=== PATIENT | female | born 1980 | race Two or more races ===

== ENCOUNTER 2025-01-16 23:38 | Observation (INO) | payer MEDICAID, SELFPAY ==
[2025-01-16 23:44] VITALS: BMI 31.6
[2025-01-16 23:50] VITALS: BP 97/81; PULSE 190; RESP 26; O2SAT 100
[2025-01-16 23:53] VITALS: BP 145/90; PULSE 210
[2025-01-16] MEDS: ADENOSINE INJ 3 MG/ML VIAL 6 MG IVP (23:53)
--- NOTE | 2025-01-16 23:55 | PD.EDCHEST ---
ED Chest Pain RME/HPI General Chief Complaint: Chest Pain Stated Complaint: PALPITATIONS CHEST P AIN Arrival date/time: 01/16/25 23:38 RME / HPI RME / HPI narrative: This section includes all my notes and documentations, including HPI, PE, and ED course. 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 Patient reports feeling similar symptoms about 3 weeks ago. No chest pain. No fever. No syncope or near syncope. No other complaints. ROS: All negative except as documented in HPI. Physical Exam: General: Alert and oriented. Eyes: Conjunctivae and lids clear. ENT: No nasal congestion. Neck: Supple. Heart: Tachycardic (~200 bpm). Lungs: No respiratory distress. Good air movement. No rhonchi, wheezing, rales. Abdomen: Soft and nontender. Skin: Warm and dry. Neuro: Alert and oriented X 3. I reviewed all diagnostic test results: My interpretation of the EKG: SVT (185 bpm). My interpretation of the chest x-ray is NAD, official radiology report is pending. Blood tests and urine tests remarkable for K 3.4, troponin 0.080 and positive UDS for marijuana. Covid/Influenza: Negative. At this point, diagnoses include: SVT and elevated troponin. Treatment here included: Adenocard, Aspirin, Potassium Chloride, IV fluid, Lopressor. Significant improvement noted. I discussed the case with our hospitalist. About the presentation and exam and diagnostics and treatments here. And need of further care in the hospital. Will accept the patient. Mark Anthony Whitney MD Related Data Home Medications ?Medication ?Instructions ?Recorded ?Confirmed No Known Home Medications 07/09/23 07/09/23 Allergies Allergy/AdvReac Type Severity Reaction Status Date / Time No Known Allergies Allergy Verified 01/16/25 23:43 Review of Systems Review of Systems Systems Reviewed: All systems reviewed, normal except as documented Past Medical History Past Medical History NEUROLOGIC: Positive Neurological Disorders and Migraine CARDIAC: Positive Cardiac Disorders (CHEST PAIN SEVERAL MONTHS AGO. PALPITATIONS AT TIMES) GASTROINTESTINAL: Positive Gastrointestinal Disorders (CONSTIPATION) and Hemorrhoids REPRODUCTIVE: Positive Previous Pregnancies (X6) MUSCULOSKELETAL: Positive Musculoskeletal Disorders (HIP PAIN AT TIMES) PSYCHO/SOCIAL: Positive Anxiety (NO MEDS) Social History SMOKING STATUS: Current some day smoker SUBSTANCE USE: marijuana ALCOHOL: Current ED Exam Narrative Physical exam: Refer to HPI Course Course Course Narrative: CXR is ordered for determining the etiology of shortness of breath. Quality Measures none Orders Category Date Time Status Patient Condition Routine Admission 01/17/25 01:[address] in Observation Status Routine Admission 01/17/25 01:35 Active Bedside COVID-19 Antigen Test NOW Care 01/16/25 23:56 Active Bedside Influenza A&B Antigen Test NOW Care 01/16/25 23:56 Completed COVID-19 Screening Questionnaire NOW Care 01/17/25 01:49 Active Continuous Pulse Oximetry NOW Care 01/17/25 01:35 Active Decision to Admit X1 Care 01/17/25 01:49 Active EKG (ED ONLY) *Do not use* NOW Care 01/16/25 23:58 Completed Flu & Pneumonia Vaccine Screen ONCE Care 01/17/25 01:35 Active Notify provider NEEDED Care 01/17/25 01:35 Active Saline [Insert IV] NOW Care 01/16/25 23:56 Active Straight [In and Out Catheter] X1 Care 01/16/25 23:56 Active Consult to Cardiology Stat Cons 01/17/25 01:39 Ordered Diet Cardiac Diet 01/17/25 Breakfast Active CA echo doppler complete Stat Exams 01/17/25 01:35 Ordered EKG (ED Only) Stat Exams 01/16/25 23:58 Ordered XR chest 1V portable Stat Exams 01/16/25 23:58 Taken Alcohol, Blood Medical Stat Lab 01/16/25 23:58 Completed BNP [B-Type Natriuretic Peptide] Stat Lab 01/16/25 23:58 Completed Bilirubin,Direct Stat Lab 01/16/25 23:58 Completed CBC AM DRAW Lab 01/17/25 05:00 Ordered CBC AM DRAW Lab 01/18/25 05:00 Ordered CBC AM DRAW Lab 01/19/25 05:00 Ordered CBC Stat Lab 01/16/25 23:59 Completed CMP [Comprehensive Metabolic Panel] Stat Lab 01/16/25 23:58 Completed Comprehensive Metabolic Panel AM DRAW Lab 01/17/25 05:00 Ordered Comprehensive Metabolic Panel AM DRAW Lab 01/18/25 05:00 Ordered Comprehensive Metabolic Panel AM DRAW Lab 01/19/25 05:00 Ordered D-Dimer Stat Lab 01/16/25 23:59 Completed Drug Screen,Urine Stat Lab 01/17/25 00:23 Completed Free T4 (Free Thyroxine) Stat Lab 01/16/25 23:58 Completed HCG,Qualitative Serum Stat Lab 01/17/25 00:14 Completed Magnesium AM DRAW Lab 01/17/25 05:00 Ordered Magnesium AM DRAW Lab 01/18/25 05:00 Ordered Magnesium AM DRAW Lab 01/19/25 05:00 Ordered Magnesium Stat Lab 01/16/25 23:58 Completed PT [Prothrombin Time with INR] Stat Lab 01/16/25 23:59 Completed PTT [Partial Thromboplastin Time] Stat Lab 01/16/25 23:59 Completed Phosphorous AM DRAW Lab 01/18/25 05:00 Ordered Phosphorous AM DRAW Lab 01/19/25 05:00 Ordered Phosphorous AM DRAW Lab 01/20/25 05:00 Ordered TSH [Thyroid Stimulating Hormone] Stat Lab 01/17/25 00:14 Completed Thyroid Stimulating Hormone AM DRAW Lab 01/17/25 05:00 Ordered Troponin I Stat Lab 01/17/25 00:14 Completed Troponin I Stat Lab 01/17/25 06:00 Ordered UA, C/S IF [Urinalysis, C/S if Indicated] Stat Lab 01/17/25 00:23 Completed Acetaminophen Tab [Tylenol Tab] Med 01/17/25 01:35 Active 1,000 mg PO Q6H PRN Acetaminophen Tab [Tylenol Tab] Med 01/17/25 01:35 Active 650 mg PO Q6H PRN Adenosine 6mg Inj [Adenocard Inj] Med 01/16/25 23:57 Discontinued 12 mg IVP X1 ONE Adenosine 6mg Inj [Adenocard Inj] Med 01/16/25 23:41 Discontinued 18 mg .ROUTE .STK-MED ONE Adenosine 6mg Inj [Adenocard Inj] Med 01/16/25 23:57 Discontinued 6 mg IVP X1 ONE Aspirin Chew Med 01/17/25 00:56 Discontinued 324 mg PO X1 ONE Bismuth Subsalicyl [Pepto-Bismol] Med 01/17/25 09:00 Ordered 2 tab PO BID Enoxaparin [Lovenox] Med 01/17/25 09:00 Active 40 mg SC QDAY KCL 10% Liq UDC 15 ML Med 01/17/25 00:55 Discontinued 40 meq PO X1 ONE Magnesium Sulfate 4 GM Ivpb [Magnesium Sulfate Ivpb] Med 01/17/25 01:49 Active 4 gm in 50 ml IV X1 Metoprolol Tartrate [Lopressor] Med 01/16/25 23:57 Discontinued 25 mg PO X1 ONE Ondansetron Inj [Zofran Inj] Med 01/17/25 01:35 Ordered 4 mg IVP Q6H PRN Pantoprazole [Protonix] Med 01/17/25 09:00 Active 40 mg PO BID Potassium Chloride [K-Dur] Med 01/17/25 01:49 Once 40 meq PO X1 ONE Sodium Chloride 0.9% 1000 ml [Ns] 1,000 ml Med 01/17/25 00:03 Discontinued IV 999 mls/hr Tetracycline Med 01/17/25 06:00 Ordered 500 mg PO QID metroNIDAZOLE [Flagyl] Med 01/17/25 06:00 Active 500 mg PO QID Code Status Routine Oth 01/17/25 01:35 Ordered Oxygen Delivery DAILY RT 01/17/25 01:36 Active Vital Signs Vital signs: Vital Signs Pulse Rate 190 H 01/16/25 23:50 Respiratory Rate 26 H 01/16/25 23:50 Blood Pressure 97/81 01/16/25 23:50 Pulse Oximetry (%) 100 01/16/25 23:50 Oxygen Delivery Method Room Air 01/16/25 23:50 Chest Pain MDM Narrative MDM Narrative:: Scribe Attestation: Leda Moore am scribing for and in the presence of Dr. Whitney. Provider Notation: Although this document has been carefully reviewed, there may still be some phonetic and other typographical errors.? These errors are purely grammatical due to imperfections in the software program and should not be construed in any way to? compromise the substance of the patient's medical care during this visit. 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 Patient reports feeling similar symptoms about 3 weeks ago. No other complaints. Patient data External records reviewed:: [facility] previous records (Reviewed [facility] ED records from 06/13/22. Patient was seen for Back pain.) Clinical information provided by:: patient Social determinants that could affect healthcare access:: none Patient has the following chronic illnesses:: Migraine, Palpitations, Constipation, Hemorrhoids How is presenting disease/condition affected by chronic disease/condition?: exacerbated by Evaluation data The following diagnostics were reviewed and interpreted by me:: radiology exam(s) and EKG tracing(s) (My interpretation of the EKG: SVT (185 bpm). Mark Anthony Whitney MD) Lab and/or radiology exams considered but not ordered:: None Interpretation Summary: I reviewed all diagnostic test results: My interpretation of the EKG: SVT (185 bpm). My interpretation of the chest x-ray is NAD, official radiology report is pending. Blood tests and urine tests remarkable for K 3.4, troponin 0.080 and positive UDS for marijuana. Covid/Influenza: Negative. Medications / Prescriptions Medications or Prescriptions considered but not ordered:: None Medication administrations:: Medication Administration History Acetaminophen (Acetaminophen 325 Mg Tablet) 650 mg PO Q6H PRN PRN Reason: Fever >99.5 Stop: 02/16/25 01:34 Acetaminophen (Acetaminophen 325 Mg Tablet) 1,000 mg PO Q6H PRN PRN Reason: PAIN SCALE 1-3 (mild Stop: 02/16/25 01:34 Bismuth Subsalicylate (Bismuth Subsalicyl 1 Tablet (Pepto-Bismol)) 2 tab PO BID [facility] Stop: 02/16/25 08:59 Enoxaparin Sodium (Enoxaparin Sod Inj 40 Mg/0.4 Ml Syringe) 40 mg SC QDAY [facility] Stop: 01/31/25 08:59 Magnesium Sulfate (Magnesium Sulfate Ivpb) 4 gm in 50 mls @ 12.5 mls/hr IV X1 ONE Stop: 01/17/25 05:48 Metronidazole (Metronidazole 250 Mg Tablet) 500 mg PO QID [facility] Stop: 01/24/25 05:59 Ondansetron HCl (Ondansetron Inj 2 Mg/Ml Inj 2 Ml) 4 mg IVP Q6H PRN; Protocol PRN Reason: NAUSEA OR VOMITING Stop: 02/16/25 01:34 Pantoprazole Sodium (Pantoprazole 40 Mg Tablet) 40 mg PO BID [facility] Stop: 02/16/25 08:59 Potassium Chloride (Potassium Chloride 20 Meq Tabcr) 40 meq PO X1 ONE Stop: 01/17/25 01:50 Tetracycline HCl (Tetracycline 250 Mg Capsule) 500 mg PO QID [facility] Stop: 01/24/25 05:59 Discontinued Medications Adenosine (Adenosine Inj 3 Mg/Ml Vial) Confirm Administered Dose 18 mg .ROUTE .STK-MED ONE Stop: 01/16/25 23:42 Last Admin: 01/16/25 23:56 Dose: Not Given Documented By: DT Non-Admin Reason: Duplicate Medication on eMAR Adenosine (Adenosine Inj 3 Mg/Ml Vial) 6 mg IVP X1 ONE Stop: 01/16/25 23:58 Last Admin: 01/16/25 23:53 Dose: 6 mg Documented By: DT Adenosine (Adenosine Inj 3 Mg/Ml Vial) 12 mg IVP X1 ONE Stop: 01/16/25 23:58 Last Admin: 01/17/25 00:01 Dose: 12 mg Documented By: DT Aspirin (Aspirin 81 Mg Chew) 324 mg PO X1 ONE Stop: 01/17/25 00:57 Last Admin: 01/17/25 01:08 Dose: 324 mg Documented By: DT Sodium Chloride (Ns) 1,000 mls @ 999 mls/hr IV .Q1H1M ONE Stop: 01/17/25 01:03 Last Infusion: 01/17/25 01:10 Dose: Infused Documented By: Admin: 01/17/25 00:07 Dose: 999 mls/hr Documented By: DT Metoprolol Tartrate (Metoprolol Tartrate 25 Mg Tablet) 25 mg PO X1 ONE Stop: 01/16/25 23:58 Last Admin: 01/17/25 00:09 Dose: 25 mg Documented By: DT Potassium Chloride (Potassium Chloride 10% 20 Meq/15 Ml Udc) 40 meq PO X1 ONE Stop: 01/17/25 00:56 Last Admin: 01/17/25 01:08 Dose: 40 meq Documented By: DT Treatment from ca here included Adenocard, Aspirin, Potassium Chloride, IV fluid, Lopressor. Consultations Consultation(s) initiated? (list below): No Diagnosis Chest Pain Differential Diagnosis: stable angina, unstable angina pectoris, atypical chest pain, st elevation myocardial infarction, costochondritis, chest pain and other (SVT) Most likely diagnosis given after review of the tests above:: SVT and elevated troponin Admission Indicated Admission indicated?: indicated Explain why admission is indicated or not indicated:: SVT and elevated troponin Admission Request Was there a request for admission?: Yes Admission Attestation Admission request attestation: Discussed case with Hospitalist service regarding admission. Discussed patients ED course, exam findings, labs, and radiology results. The Hospitalist [agrees] to accept the patient for admission. Disposition Plan Disposition Plan: Admit Critical Care Time Critical Care Time Critical Care Time: Yes Total Critical Care Time (min.): 42 Attestation: Due to a high probability of clinically significant, life threatening deterioration, the patient required my highest level of preparedness to intervene emergently and I personally spent this critical care time directly and personally managing the patient. This critical care time included obtaining a history; examining the patient; ordering and review of studies; arranging urgent treatment with development of a management plan; evaluation of patient's response to treatment; frequent reassessment; and discussions with family and other providers. It was exclusive of separately billable procedures and treating other patients and teaching time. Mark Anthony Whitney MD Discharge Plan Plan Patient Disposition: Admit Acute Care w/in Hospital Prescriptions/Referrals Prescriptions/Med Rec: No Action No Known Home Medications Referrals: John De León MD [Primary Care Provider] - In 1 week Problem List Clinical Impression: SVT (supraventricular tachycardia), Elevated troponin Patient/Caregiver Discharge Instructions Print Language: Chadian
--- NOTE | 2025-01-16 23:58 | XR_ITS ---
Examination: AP chest single view Technique one AP portable upright chest single view Date and time: January 17, 2025 0021 hours Comparison June 13, 2022 INDICATIONS: Shortness of breath today. FINDINGS: Normal heart size Lungs are clear. The osseous structures are intact IMPRESSION: No active disease
[2025-01-17] VITALS (14 sets, daily range): BP systolic 116–157; BP diastolic 75–101; PULSE 58–210; RESP 13–100; TEMP 36.1–37; O2SAT 97–100
[2025-01-17] MEDS: ADENOSINE INJ 3 MG/ML VIAL 12 MG IVP (00:01)
[2025-01-17] MEDS: SODIUM CHLORIDE 0.9% 1000 ML 1,000 ML 999 ML IV (00:07)
[2025-01-17] MEDS: METOPROLOL TARTRATE 25 MG TABLET PO (00:09)
[2025-01-17 00:31] LABS: Basophils % (Auto) 0 % (0-2.5); Eosinophils # (Auto) 0.1 Thou/mm3 (0.0-0.5); Eosinophils % (Auto) 1 % (0-10); Hematocrit 31.1 % (36.0-46.0); Hemoglobin 10.1 g/dL (12.0-16.0); Immature Granulocytes % (Auto) 0 % (0-0); Immature Granulocytes Auto 0.02 Thou/mm3 (0.00-0.00); Lymphocytes # (Auto) 3.3 Thou/mm3 (1.0-4.8); Lymphocytes % (Auto) 49 % (10-50); Mean Corpuscular HGB Conc 32.5 g/dl (31.0-37.0); Mean Corpuscular Volume 74 fL (80-100); Monocytes # (Auto) 0.7 Thou/mm3 (0.0-0.8); Monocytes % (Auto) 10 % (0-12); Neutrophils # (Auto) 2.6 Thou/mm3 (1.8-7.7); Neutrophils % (Auto) 39 % (37-80); Nucleated Red Blood Cell % 0 /100 WBC (0); Platelet Count 445 Thou/mm3 (140-440); RDW Standard Deviation 57.4 fL (36.4-46.3); Red Blood Count 4.21 Miln/mm3 (4.00-5.20); White Blood Count 6.7 Thou/mm3 (3.6-11.0)
[2025-01-17 00:32] LABS: Collection Type, Urine Clean Catch
[2025-01-17 00:42] LABS: HCG,Qualitative Serum Negative
[2025-01-17 00:45] LABS: Bacteria,Urine Rare; Bilirubin,Urine Negative (Negative); Blood,Urine Negative (Negative); Clarity,Urine Clear (Clear/Hazy); Color,Urine Colorless (Lt Yel-Yel); Culture Indicated,Urine Not Indicated; Glucose, Urine Negative (Negative); Ketones,Urine Negative (Negative); Leukocyte Esterase,Urine Negative (Negative); Nitrite,Urine Negative (Negative); PH,Urine 6.5 (5.0-7.0); Protein,Urine Negative (Neg - Trace); RBC,Urine 3 /hpf (0-3); Specific Gravity,Urine 1.005 (1.001-1.035); Squamous Epithelial Cell,Urine 3 /hpf (0-5); Urobilinogen,Urine Negative mg/dL (0.0-1.0); WBC,Urine < 1 /hpf (0-5)
[2025-01-17 00:46] LABS: INR 0.9 (0.9-1.3); Partial Thromboplastin Time 24.2 Seconds (22.0-36.0); Prothrombin Time 10.1 Seconds (9.0-12.2)
[2025-01-17 00:50] LABS: Amphetamine/Methamp Scrn,U Negative (Negative); Barbiturate Screen,Urine Negative (Negative); Benzodiazepines Screen,Urine Negative (Negative); Benzoylecgonine Screen, Ur Negative (Negative); Fentanyl Screen,Urine Negative (Negative); Opiate Screen,Urine Negative (Negative); THC Screen,Urine Positive (Negative)
[2025-01-17 00:50] LABS: Alanine Aminotransferase 44 U/L (10-49); Albumin, Serum 4.3 gm/dL (3.5-5.0); Albumin/Globulin Ratio 1.4 (1.2-2.2); Alcohol, Blood Medical < 3.0 mg/dL (0-10.0); Alkaline Phosphatase 97 U/L (46-116); Anion Gap 10 (7-16); BUN/Creatinine Ratio 12 Ratio (12-20); Bilirubin,Direct < 0.1 mg/dL (0.0-0.3); Bilirubin,Total 0.2 mg/dL (0.3-1.2); Blood Urea Nitrogen 11 mg/dL (9-23); Calcium 8.5 mg/dL (8.3-10.6); Calcium (Corrected) 8.5 mg/dL (8.5-10.1); Carbon Dioxide 21.2 mMol/L (20.0-31.0); Chloride 109 mMol/L (98-107); Creatinine (Component) 0.9 mg/dL (0.6-1.3); D-Dimer < 250 ng/mL (<600); Estimated Creatinine Clearance 88.3 mL/min (>60); Glucose 154 mg/dL (74-106); Magnesium 1.8 mg/dL (1.6-2.6); Osmolality,Calculated 281 (275-295); Potassium 3.4 mMol/L (3.4-5.1); Sodium 140 mMol/L (136-145); Thyroid Stimulating Hormone 2.48 uIU/mL (0.55-4.78); Total Protein 7.3 gm/dL (5.7-8.2); eGFR > 60 See Note
[2025-01-17 00:55] LABS: B-Type Natriuretic Peptide 32 pg/mL (0-100)
[2025-01-17] MEDS: ASPIRIN 81 MG CHEW 324 MG PO (01:08)
[2025-01-17] MEDS: POTASSIUM CHLORIDE 10% 20 MEQ/15 ML UDC 40 MEQ PO (01:08)
--- NOTE | 2025-01-17 01:35 | ECHO_ITS ---
Transthoracic Echo Report Ht (in): 65 Wt (lb): 190 Exam Location: Echo Lab Status: Emergency Scada Technician: Mayelin Wright Indications: Procedure Performed: BP: 154 / 98 HR: 65 Technical Quality: Adequate MEASUREMENTS (Male / Female) Normal Values 2D ECHO LV Diastolic Diameter PLAX 4.7 cm 4.2 - 5.9 / 3.9 - 5.3 cm LV Systolic Diameter PLAX 3.0 cm IVS Diastolic Thickness 0.8 cm 0.6 - 1.0 / 0.6 - 0.9 cm LVPW Diastolic Thickness 0.9 cm 0.6 - 1.0 / 0.6 - 0.9 cm LV Relative Wall Thickness 0.4 LVOT Diameter 1.8 cm LA Volume Index 28.6 cm?/m? 16 - 28 cm?/m? DOPPLER AV Peak Velocity 110.0 cm/s AV Peak Gradient 4.8 mmHg LVOT Peak Velocity 80.5 cm/s LVOT Peak Gradient 2.6 mmHg AV Area Cont Eq pk 1.9 cm? MV Area PHT 3.7 cm? Mitral E Point Velocity 86.8 cm/s Mitral A Point Velocity 58.7 cm/s Mitral E to A Ratio 1.5 LV E' Lateral Velocity 10.8 cm/s Mitral E to LV E' Lateral Ratio 8.0 LV E' Septal Velocity 8.9 cm/s Mitral E to LV E' Septal Ratio 9.7 TR Peak Velocity 220.0 cm/s TR Peak Gradient 19.4 mmHg PV Peak Velocity 78.7 cm/s PV Peak Gradient 2.5 mmHg FINDINGS Left Ventricle Normal left ventricular size, wall thickness, systolic function with no obvious regional wall motion abnormalities. Normal left ventricular diastolic filling pattern for age. The ejection fraction is visually estimated at 60%. Right Ventricle The right ventricle is normal in size and systolic function. The estimated right ventricular systolic pressure, 19 mmHg. RAP 5mmHg. Left Atrium The left atrium is normal by two-dimensional, color flow and Doppler imaging with no structural abnormalities, no thrombus formation present. Right Atrium The right atrium is normal by two-dimensional imaging, color flow and Doppler imaging with no structural abnormalities, no thrombus formation present. Atrial Septum The interatrial septum appears normal with no evidence of a shunt. Aorta The aorta is normal by two-dimensional, color flow and Doppler interrogation. Mitral Valve The mitral valve is normal by two-dimensional, color flow and Doppler interrogation. There is mild mitral regurgitation. Aortic Valve The aortic valve is trileaflet and normal by two-dimensional, color flow and Doppler interrogation. There is no significant aortic valve regurgitation. Tricuspid Valve The tricuspid valve is normal by two-dimensional, color flow and Doppler interrogation. There is trace tricuspid regurgitation. Pulmonic Valve The pulmonic valve is not well visualized. There is no significant pulmonic valve regurgitation. Vessels The pulmonary artery appears normal. The inferior vena cava pulmonary and hepatic veins appear normal. Pericardium The pericardium is normal by two-dimensional imaging. There is no significant pericardial effusion. CONCLUSIONS Indications: SVT The transthoracic study is normal by two-dimensional, color flow imaging and Doppler interrogation. Normal-sized cardiac chambers. Normal size left ventricle excellent LV systolic function ejection fraction of 60 to 65%. Mitral valve thickening trivial mitral regurgitation. Trivial tricuspid regurgitation. Elaine Cortes (Electronically Signed) Final Date: 17 January 2025 17:20
--- NOTE | 2025-01-17 01:50 | PD.RESHP ---
Documentation for date of: 01/17/25 HPI History of Present Illness Chief complaint: Palpitations History of present illness: 44-year-old female active smoker with past medical history of iron deficiency anemia on iron supplementation who presented to the ED after feeling her heart racing. Patient was getting ready to go to bed when she suddenly felt like her heart was racing endorsing palpitations associated with shortness of breath. She states that this episode was different as her symptoms did not improve with rest and felt like her heart continue to be excessively fast. Patient has had similar episode around 3 weeks ago spoke to her PCP and was waiting for referral to outpatient cardiology for formal evaluation of palpitations. Patient denies excessive caffeine use however does endorse daily active smoking about half a pack a day as well as THC use. Patient also endorses lots of recent stressors in the past 6 months including the of a family member and taking care of other loved ones in her home. In the ED patient arrived with heart rate in the 180s with SVTs was given adenosine and patient converted to normal sinus rhythm. Patient also endorses that she is currently on treatment started on January 12, 2025 for H. pylori infection. At this time patient denies fever, chills, shortness of breath, chest pain, headache, loss of consciousness, nausea, vomiting, orthopnea, PND. ED course: ED vitals: BP 97/81, HR 190, RR 26, saturating 100% on room air ED labs: Microcytic anemia, glucose 154, T. bili 0.2, troponin 0.08, BNP 32, TSH 2.48, free T41.10, UA negative, U tox positive for THC In the ED patient received loading dose of aspirin, adenosine 6 mg, 12 mg PMHx: As above SX Hx: None Social Hx: Half a pack of cigarettes a day, drinks socially, denies illicit substances however does endorse THC use FH X: Unknown Review of Systems Review of Systems Systems Reviewed: All systems reviewed, normal except as documented Narrative Review of Systems: All 12 systems reviewed and found negative unless otherwise stated in the HPI. Exam Vital Signs Pulse Resp BP Pulse Ox O2 Del Method 89 14 154/98 H 99 Room Air 01/17/25 01:11 01/17/25 01:11 01/17/25 01:11 01/17/25 01:11 01/17/25 01:11 Narrative Exam Physical Exam GENERAL: NAD, AAOx3 HEENT: Moist mucosa. Eyes open, symmetrical, & clear CARDIO: Heart RRR, no obvious murmurs PULM: No noted coughing/dyspnea CTA B/L, no R/W/R GI: Abdomen soft, nondistended, no pain on palpation. BSx4 SKIN/MSK/EXT: No wounds/rashes/edema/amputations, no pain on palpation. Pedal pulses present B/L NEURO: AAOx3, no focal neuro deficits, able to move all 4 extremities Results: Labs 01/17/25 00:14 01/17/25 00:14 Labs: Short CBC 01/17/25 Range/Units 00:14 WBC 6.7 (3.6-11.0) Thou/mm3 Hgb 10.1 L (12.0-16.0) g/dL Hct 31.1 L (36.0-46.0) % Plt Count 445 H (140-440) Thou/mm3 BMP 01/17/25 00:14 Sodium 140 Potassium 3.4 Chloride 109 H Carbon Dioxide 21.2 BUN 11 Creatinine 0.9 Glucose 154 H Calcium 8.5 Cardiac Enzymes 01/17/25 Range/Units 00:14 Troponin I 0.080 H* (0.0-0.045) ng/mL Liver Function 01/17/25 Range/Units 00:14 Total Bilirubin 0.2 L (0.3-1.2) mg/dL Direct Bilirubin < 0.1 (0.0-0.3) mg/dL ALT 44 (10-49) U/L Alkaline Phosphatase 97 (46-116) U/L Albumin 4.3 (3.5-5.0) gm/dL Urine 01/17/25 Range/Units 00:23 Urine Color Colorless A (Lt Yel-Yel) Urine Clarity Clear (Clear/Hazy) Urine pH 6.5 (5.0-7.0) Ur Specific [place] 1.005 (1.001-1.035) Urine Protein Negative (Neg - Trace) Urine Glucose (UA) Negative (Negative) Quality Measures Quality Measures none Medications Home Medications and Allergies Home Medications ?Medication ?Instructions ?Recorded ?Confirmed ?Type amoxicillin 500 mg capsule 1,000 mg PO BID 01/17/25 01/17/25 History clarithromycin 500 mg tablet 500 mg PO BID 01/17/25 01/17/25 History ferrous sulfate 325 mg (65 mg 325 mg PO .3 TIMES A WEEK 01/17/25 01/17/25 History iron) tablet (John-Time) omeprazole 20 mg capsule,delayed 20 mg PO BID 01/17/25 01/17/25 History release vit D3-folic acid-vit B2-B6-B12 1 tab PO .QD 01/17/25 01/17/25 History 2,000 unit-800 mcg-0.32 mg tablet Allergies Allergy/AdvReac Type Severity Reaction Status Date / Time No Known Allergies Allergy Verified 01/16/25 23:43 Visit Medications Acetaminophen (Acetaminophen 325 Mg Tablet) 650 mg PO Q6H PRN PRN Reason: Fever >99.5 Stop: 02/16/25 01:34 Acetaminophen (Acetaminophen 325 Mg Tablet) 1,000 mg PO Q6H PRN PRN Reason: PAIN SCALE 1-3 (mild Stop: 02/16/25 01:34 Bismuth Subsalicylate (Bismuth Subsalicyl 1 Tablet (Pepto-Bismol)) 2 tab PO BID [facility] Stop: 02/16/25 08:59 Enoxaparin Sodium (Enoxaparin Sod Inj 40 Mg/0.4 Ml Syringe) 40 mg SC QDAY [facility] Stop: 01/31/25 08:59 Magnesium Sulfate (Magnesium Sulfate Ivpb) 4 gm in 50 mls @ 12.5 mls/hr IV X1 ONE Stop: 01/17/25 05:48 Metronidazole (Metronidazole 250 Mg Tablet) 500 mg PO QID [facility] Stop: 01/24/25 05:59 Ondansetron HCl (Ondansetron Inj 2 Mg/Ml Inj 2 Ml) 4 mg IVP Q6H PRN; Protocol PRN Reason: NAUSEA OR VOMITING Stop: 02/16/25 01:34 Pantoprazole Sodium (Pantoprazole 40 Mg Tablet) 40 mg PO BID [facility] Stop: 02/16/25 08:59 Potassium Chloride (Potassium Chloride 20 Meq Tabcr) 40 meq PO X1 ONE Stop: 01/17/25 01:50 Tetracycline HCl (Tetracycline 250 Mg Capsule) 500 mg PO QID [facility] Stop: 01/24/25 05:59 Discontinued Medications Adenosine (Adenosine Inj 3 Mg/Ml Vial) 6 mg IVP X1 ONE Stop: 01/16/25 23:58 Last Admin: 01/16/25 23:53 Dose: 6 mg Adenosine (Adenosine Inj 3 Mg/Ml Vial) 12 mg IVP X1 ONE Stop: 01/16/25 23:58 Last Admin: 01/17/25 00:01 Dose: 12 mg Aspirin (Aspirin 81 Mg Chew) 324 mg PO X1 ONE Stop: 01/17/25 00:57 Last Admin: 01/17/25 01:08 Dose: 324 mg Sodium Chloride (Ns) 1,000 mls @ 999 mls/hr IV .Q1H1M ONE Stop: 01/17/25 01:03 Last Infusion: 01/17/25 01:10 Dose: Infused Metoprolol Tartrate (Metoprolol Tartrate 25 Mg Tablet) 25 mg PO X1 ONE Stop: 01/16/25 23:58 Last Admin: 01/17/25 00:09 Dose: 25 mg Potassium Chloride (Potassium Chloride 10% 20 Meq/15 Ml Udc) 40 meq PO X1 ONE Stop: 01/17/25 00:56 Last Admin: 01/17/25 01:08 Dose: 40 meq Assessment & Plan Plan 44-year-old female active smoker with past medical history of iron deficiency anemia on iron supplementation who presented to the ED after feeling her heart racing. Patient will be admitted as an observation for telemetry monitoring and cardiology evaluation. #Palpitations #SVT #Elevated troponins Patient was getting ready to go to bed when she suddenly felt palpitations associated with shortness of breath. 3 weeks ago patient had similar presentation however resolved on its own patient went to her PCP to pursue formal cardiology evaluation however was pending referral Patient also having increased stressors in stuart past 6months including the of a loved one and taking care of family member in her home. On arrival to the ED patient's heart rate was in the 190s EKG showed SVT and was given adenosine 6 mg and adenosine 12 mg with conversion to sinus rhythm. Troponins 0.080 ? Follow-up EKG, monitor QTc ? Trend troponins ? Monitor telemetry ? Echo ordered ? Keep K>4, Mg>2 ? Cardiology consulted, appreciate recs #H. pylori infection ? Tetracycline 500 mg 4 times daily ? Metronidazole 500 mg 4 times daily ? PPI twice daily ? Bismuth #Microcytic anemia Hemoglobin of 10, MCV of 71 ? Follow-up as outpatient Health Maintenance: Disposition: Telemetry, observation for telemetry monitoring Fluids: None Feeding: Cardiac Thrombo prophylaxis: SCDs Gastric Ulcer prophylaxis: Pantoprazole CODE STATUS: Full code Case discussed with my attending Dr. Kaitlin De León MD PGY-1 Attending Provider Attestation/Addendum I have examined the patient, reviewed labs and imaging findings, discussed the case with the resident(s), and reviewed entered orders. I agree with the plan of care as outlined in this note, with these additional summaries/recommendations: After examination of the patient and review of the clinical data, I feel that this patient needs admission to the hospital for further treatment and evaluation. Patient is a 44-year-old female with a medical history of vitamin D deficiency, iron deficiency anemia, and recent diagnosis of H. pylori presents to [facility] emergency department on 01/16/2025 with chief complaints of chest pain, palpitations, and dizziness. Patient seen at bedside. Patient reports she has had on and off again palpitations for the last 3 weeks. Today patient had significant palpitations, chest pain, and dizziness prompting her to come to the ED. In the emergency room patient was found to be in supraventricular tachycardia with heart rate into the 210s. Patient received adenosine 6 mg IV x 1 and then adenosine 12 mg IV x 1 with termination of SVT and conversion to sinus rhythm. Patient does endorse significant stress related to family over the last 6 months. She denies excessive caffeine, coffee or energy drinks. She does endorse occasional THC usage and chronic tobacco use. She denies ever being diagnosed with an arrhythmia in the past but is currently pending outpatient cardiology evaluation. She was recently started on treatment for H. pylori. Patient will be admitted to telemetry for supraventricular tachycardia and we will continue to monitor. Cardiology consulted, recommendations appreciated. Order echocardiogram. Patient also noted to have elevated troponins most likely secondary to demand ischemia in the setting of SVT. Trend troponins every 6 hours or until downtrend. Repeat EKG in AM. Resume home H. pylori treatment. Resume home ferrous sulfate iron deficiency anemia. Patient updated on the plan and in agreement. All questions answered to satisfaction. Please see residents note for additional details and management. Dr. Kaitlin MD
--- NOTE | 2025-01-17 01:55 | EKG_ITS ---
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
[2025-01-17] MEDS: Magnesium Sulfate 4 GM Ivpb 4 GM/50 ML BAG IV (02:15)
[2025-01-17 05:54] LABS: Basophils % (Auto) 0 % (0-2.5); Eosinophils % (Auto) 1 % (0-10); Hematocrit 28.8 % (36.0-46.0); Immature Granulocytes % (Auto) 0 % (0-0); Immature Granulocytes Auto 0.01 Thou/mm3 (0.00-0.00); Lymphocytes # (Auto) 2.1 Thou/mm3 (1.0-4.8); Lymphocytes % (Auto) 34 % (10-50); Mean Corpuscular HGB Conc 30.6 g/dl (31.0-37.0); Mean Corpuscular Hemoglobin 23.7 pg (25.0-35.0); Mean Corpuscular Volume 77 fL (80-100); Monocytes # (Auto) 0.6 Thou/mm3 (0.0-0.8); Monocytes % (Auto) 9 % (0-12); Neutrophils # (Auto) 3.6 Thou/mm3 (1.8-7.7); Neutrophils % (Auto) 56 % (37-80); Nucleated Red Blood Cell % 0 /100 WBC (0); Platelet Count 361 Thou/mm3 (140-440); RDW Standard Deviation 61.3 fL (36.4-46.3); Red Blood Count 3.72 Miln/mm3 (4.00-5.20); White Blood Count 6.3 Thou/mm3 (3.6-11.0)
[2025-01-17 06:04] LABS: Hemoglobin 8.8 g/dL (12.0-16.0)
[2025-01-17] MEDS: TETRACYCLINE 250 MG CAPSULE 500 MG PO ×3 (06:11→17:27)
[2025-01-17] MEDS: metroNIDAZOLE 250 MG TABLET 500 MG PO ×3 (06:12→17:28)
[2025-01-17 06:49] LABS: Alanine Aminotransferase 59 U/L (10-49); Albumin, Serum 3.6 gm/dL (3.5-5.0); Albumin/Globulin Ratio 1.3 (1.2-2.2); Alkaline Phosphatase 83 U/L (46-116); Anion Gap 8 (7-16); BUN/Creatinine Ratio 13 Ratio (12-20); Bilirubin,Total 0.2 mg/dL (0.3-1.2); Blood Urea Nitrogen 9 mg/dL (9-23); Calcium 8.1 mg/dL (8.3-10.6); Calcium (Corrected) 8.4 mg/dL (8.5-10.1); Carbon Dioxide 23.1 mMol/L (20.0-31.0); Chloride 113 mMol/L (98-107); Creatinine (Component) 0.7 mg/dL (0.6-1.3); Estimated Creatinine Clearance 113.5 mL/min (>60); Globulin 2.7 gm/dL (2.3-3.5); Glucose 108 mg/dL (74-106); Magnesium 2.8 mg/dL (1.6-2.6); Osmolality,Calculated 286 (275-295); Sodium 144 mMol/L (136-145); Total Protein 6.3 gm/dL (5.7-8.2); eGFR > 60 See Note
[2025-01-17 06:53] LABS: Troponin I 0.084 ng/mL (0.0-0.045)
[2025-01-17] MEDS: PANTOPRAZOLE 40 MG TABLET PO (08:36)
[2025-01-17] MEDS: CALCIUM CARBONATE 600 MG TABLET PO (08:36)
--- NOTE | 2025-01-17 09:43 | PD.RESPRO ---
Documentation for date of: 01/17/25 Subjective Subjective Interval history: Pt is an overnight admit. Pt is seen and examined at bedside this morning. Pt states she has been having increased anxiety, palpitations and shortness of breath since the passing of her mother in law 6 months ago. Pt has never dad these symptoms prior to that. Pt denies any known cardiac history. Pt was referred to a light equipment operator by primary care however the referral is still pending. Pt denies any chest pains or syncopal episodes. Pt does smoke half pack of cigs daily. Troponins are trending currently troponins 0.078 -> 0.096. cardio recs and echo pending. vitals are stable, Labs are significant for hemoglobin 8.8, hematocrit 28.8, MCV 77. Patient has no other complaints. Exam Vital Signs Temp Pulse Resp BP Pulse Ox O2 Del Method 97.2 F 68 15 124/75 99 Room Air 01/17/25 08:00 01/17/25 08:00 01/17/25 08:00 01/17/25 08:00 01/17/25 08:00 01/17/25 08:00 Narrative Exam GENERAL: A&Ox3 . Awake, Not in acute distress NEURO: no focal neurological deficits HEENT: Atraumatic, Normocephalic. mucous membranes moist. Eyes open, symmetrical, & clear HEART: Normal Heart Sounds LUNGS: Clear to auscultation with no wheezing or crackles. ABDOMEN: soft, non-distended, non-tender, bowel sounds heard, no guarding or rebound tenderness SKIN: No Rash or ecchymoses EXTREMITIES: No edema, tenderness, able to move all 4 extremities, pedal pulses palpated Objective Labs 01/17/25 05:06 01/17/25 05:06 Labs: Laboratory Results - last 24 hr 01/17/25 01/17/25 01/17/25 00:14 00:23 05:06 WBC 6.7 6.3 RBC 4.21 3.72 L Hgb 10.1 L 8.8 L Hct 31.1 L 28.8 L MCV 74 L 77 L MCH 24.0 L 23.7 L MCHC 32.5 30.6 L RDW Std Deviation 57.4 H 61.3 H Plt Count 445 H 361 D Neut % (Auto) 39 56 Lymph % (Auto) 49 34 [place] % (Auto) 10 9 Eos % (Auto) 1 1 Baso % (Auto) 0 0 Neut # (Auto) 2.6 3.6 Lymph # (Auto) 3.3 2.1 [place] # (Auto) 0.7 0.6 Eos # (Auto) 0.1 0.0 Baso # (Auto) 0.0 0.0 Immature Gran # (Auto) 0.02 H 0.01 H Absolute Nucleated RBC 0.00 0.00 Immature Gran % 0 0 Nucleated RBC % 0 0 PT 10.1 INR 0.9 APTT 24.2 D-Dimer < 250 Sodium 140 144 Potassium 3.4 5.0 D Chloride 109 H 113 H Carbon Dioxide 21.2 23.1 Anion Gap 10 8 BUN 11 9 Creatinine 0.9 0.7 Estim Creat Clear Calc 88.3 113.5 eGFR > 60 > 60 BUN/Creatinine Ratio 12 13 Glucose 154 H 108 H Calculated Osmolality 281 286 Calcium 8.5 8.1 L Corrected Calcium 8.5 8.4 L Magnesium 1.8 2.8 H Total Bilirubin 0.2 L 0.2 L Direct Bilirubin < 0.1 ALT 44 59 H Alkaline Phosphatase 97 83 Troponin I 0.080 H* 0.084 H* B-Natriuretic Peptide 32 Total Protein 7.3 6.3 Albumin 4.3 3.6 D Globulin 3.0 2.7 Albumin/Globulin Ratio 1.4 1.3 TSH 2.48 0.80 Free T4 1.10 HCG, Qual Negative Ur Collection Type Clean Catch Urine Color Colorless A Urine Clarity Clear Urine pH 6.5 Ur Specific [place] 1.005 Urine Protein Negative Urine Glucose (UA) Negative Urine Ketones Negative Urine Blood Negative Urine Nitrite Negative Urine Bilirubin Negative Urine Urobilinogen (Auto) Negative Ur Leukocyte Esterase Negative Urine RBC 3 Urine WBC < 1 Ur Squamous Epith Cells 3 Urine Bacteria Rare Ur Culture Indicated? Not Indicated Urine Opiates Screen Negative Urine Fentanyl Screen Negative Ur Barbiturates Screen Negative U Amphetamin/Meth Scrn Negative U Benzodiazepines Scrn Negative U Cocaine Metab Screen Negative U Marijuana (THC) Screen Positive A Ethyl Alcohol < 3.0 Quality Measures Quality Measures none Assessment & Plan Assessment Current Active Medications: Generic Name Dose Route Start Last Admin Trade Name Freq PRN Reason Stop Dose Admin Acetaminophen 650 mg 01/17/25 01:35 Acetaminophen 325 Mg Tablet PO 02/16/25 01:34 Q6H PRN Fever >99.5 Acetaminophen 1,000 mg 01/17/25 01:35 Acetaminophen 325 Mg Tablet PO 02/16/25 01:34 Q6H PRN PAIN SCALE 1-3 (mild Bismuth Subsalicylate 2 tab 01/17/25 09:00 Bismuth Subsalicyl 1 Tablet (Pepto-Bismol) PO 02/16/25 08:59 BID DANIEL Metronidazole 500 mg 01/17/25 06:00 01/17/25 06:12 Metronidazole 250 Mg Tablet PO 01/24/25 05:59 500 mg QID DANIEL Administration Nicotine 14 mg 01/17/25 09:45 Nicotine Patch 14 Mg/24 Hr Patch.Td24 TOP 02/16/25 09:44 QDAY DANIEL Ondansetron HCl 4 mg 01/17/25 01:35 Ondansetron Inj 2 Mg/Ml Inj 2 Ml IVP 02/16/25 01:34 Q6H PRN NAUSEA OR VOMITING Protocol Pantoprazole Sodium 40 mg 01/17/25 09:00 01/17/25 08:36 Pantoprazole 40 Mg Tablet PO 02/16/25 08:59 40 mg BID DANIEL Administration Tetracycline HCl 500 mg 01/17/25 06:00 01/17/25 06:11 Tetracycline 250 Mg Capsule PO 01/24/25 05:59 500 mg QID DANIEL Administration Plan Ms. Boyce is a 44-year-old female active smoker with past medical history of iron deficiency anemia on iron supplementation who presented to the ED after feeling her heart racing. Patient will be admitted as an observation for telemetry monitoring and cardiology evaluation. #Palpitations #SVT s/p adenosine #Elevated troponins Patient was getting ready to go to bed when she suddenly felt palpitations associated with shortness of breath. 3 weeks ago patient had similar presentation however resolved on its own patient went to her PCP to pursue formal cardiology evaluation however was pending referral Patient also having increased stressors in the past 6months including the of a loved one and taking care of family member in her home. On arrival to the ED patient's heart rate was in the 190s EKG showed SVT and was given adenosine 6 mg and adenosine 12 mg with conversion to sinus rhythm. Troponins 0.078 -> 0.096 Plan: ? Follow-up EKG, monitor QTc ? Trend troponins ? Monitor telemetry ? Echo ordered ? Keep K>4, Mg>2 ? Cardiology consulted, appreciate recs #H. pylori infection Patient has been on H. pylori Quad therapy since January 12. ? Tetracycline 500 mg 4 times daily ? Metronidazole 500 mg 4 times daily ? PPI twice daily ? Bismuth -Pt will need to follow up with primary care 3 months after completing 14 day course #Microcytic anemia #Iron deficiency anemia Hemoglobin of 10, MCV of 71 Pt takes ferrous sulfate at home, no signs of active bleeding, denies hematemsis, melena and hematochezia. ?Follow-up as outpatient #Nicotine dependence Patient endorses to smoking half a pack of cigarettes daily Patient is counseled on quitting smoking as this could be possibly or attributing to her symptoms -Nicotine patch ordered Health Maintenance: Disposition: Telemetry, observation for telemetry monitoring Fluids: None Feeding: Cardiac diet Thrombo prophylaxis: SCDs Gastric Ulcer prophylaxis: Pantoprazole CODE STATUS: Full code Assessment and plan discussed with my attending physician Dr. Clara Franklin (PGY-1)- Internal medicine resident Attending Provider Attestation/Addendum I attest that I was physically present for the evaluation, physical examination, lab and imaging review of the patient with the residents. I discussed the case with the residents and agree with the findings and plans of care as documented above. William Elizabeth MD
--- NOTE | 2025-01-17 09:51 | PC.SS ---
Follow up note: Pending ECHO and cardio recommendations.
[2025-01-17] MEDS: NICOTINE PATCH 14 MG/24 HR PATCH.TD24 TOP (10:18)
[2025-01-17] MEDS: BISMUTH SUBSALICYL 1 TABLET (Pepto-Bismol) 2 TAB PO (11:48)
--- NOTE | 2025-01-17 12:31 | PC.SS ---
SS met with patient regarding her d/c plan. Pt is alert/oriented. Pt was admitted for SVT. Pt confirmed demographic and contact information is correct on facesheet. Pt resides with her . Pt ambulates independently without assistance or DME. Pt is ok with all ADLs. Patient?s pharmacy of choice is [facility] [address]. Pt named her , Tc Boyce medical decision maker if she is unable. Patient?s choice is to return home upon d/c. Pt does not have an advance directive, SS offered, and pt was receptive. Pt states not diabetic and is not on dialysis. Patient's will provide transportation home. Pt states she followed up with PCP on Friday. D/C plan: Return home Next of Kin: Tc Boyce, , phone# [phone] PCP: Dr. John De León from [facility] Address: Correct on facesheet
[2025-01-17 13:32] LABS: Troponin I 0.096 ng/mL (0.0-0.045)
[2025-01-17] MEDS: ONDANSETRON INJ 2 MG/ML INJ 2 ML 4 MG IVP (16:43)
--- NOTE | 2025-01-17 16:52 | PD.RESEVENT ---
Documentation for date of: 01/17/25 Event Note Event Note: Rapid response was called at approximately 4:15 pm for chest pain. On arrival patient's was resting, appeared tired, calm and not restless. Pt has family at bedside. Pt states she felt a pressure in the left side chest, does not feel anxious and denies chest pain. Pt stated she felt like she was having palpitations. Pt also complained of nausea. Pt had breakfast and lunch brought from outside by her children. On focused exam findings Pt's BP was 157/101 and HR remained in the 70's. We ordered troponin and EKG, pt declined pain meds and requested zofran. Pt is stable.
[2025-01-17 17:59] LABS: Troponin I 0.107 ng/mL (0.0-0.045)
[2025-01-17 18:52] LABS: Troponin I 0.106 ng/mL (0.0-0.045)
--- NOTE | 2025-01-17 19:02 | PD.HHDS ---
Planned Discharge Date 01/17/25 DS: Providers Provider Date of admission: 01/17/25 01:35 Primary care physician: John De León MD Admitting Provider: Jarad Madrigal MD Attending Provider on Admission: William Elizabeth MD Consults: 01/17/25 01:39 Consult to Cardiology Stat Comment: Consulting Provider: Elayne Subramanian Attending Provider on DC: William Elizabeth MD Discharging Provider: William Elizabeth MD Diagnosis Problem List Completed Was Problem List Reviewed/Reconciled?: Yes Hospital Course - Hospitalist Hospital Course Hospital course: 44-year-old female active smoker with past medical history of iron deficiency anemia on iron supplementation who presented to the ED after feeling her heart racing. Patient was getting ready to go to bed when she suddenly felt like her heart was racing endorsing palpitations associated with shortness of breath. She states that this episode was different as her symptoms did not improve with rest and felt like her heart continue to be excessively fast. Patient has had similar episode around 3 weeks ago spoke to her PCP and was waiting for referral to outpatient cardiology for formal evaluation of palpitations. Patient denies excessive caffeine use however does endorse daily active smoking about half a pack a day as well as THC use. Patient also endorses lots of recent stressors in the past 6 months including the of a family member and taking care of other loved ones in her home. In the ED patient arrived with heart rate in the 180s with SVTs was given adenosine and patient converted to normal sinus rhythm. Patient also endorses that she is currently on treatment started on January 12, 2025 for H. pylori infection. At bedside today, patient was feeling well in the morning. Stated that she has been stressed for some time. Had a rapid response this afternoon due to chest discomfort, but the pain was nto associated with exercion, non radiating or non shifting. Repeat EKG shows sinus rhythm. Patient has been on sinus rhyth after adenosine in the ED. HR remaining around 60s to 70s. Troponin slightly elevated likely secondary to SVT. Echocardiography was done, shows normal size and function with normal EF. Discussed with cardiology, stated patient stable for dischar. We will discharge patient home on her home medication. Recommended follow up with PCP and Cardiologyu in 1-2 weeks of discharge. #Palpitations #SVT s/p adenosine #Elevated troponins #H. pylori infection #Microcytic anemia #Iron deficiency anemia #Nicotine dependence William Elizabeth MD Time Spent with Patient Time attestation: Total time spent providing and/or coordinating discharge services: Time spent: Less than 30 minutes Discharge Results Labs Diagrams: 01/17/25 05:06 01/17/25 05:06 Labs: Short CBC 01/17/25 01/17/25 Range/Units 00:14 05:06 WBC 6.7 6.3 (3.6-11.0) Thou/mm3 Hgb 10.1 L 8.8 L (12.0-16.0) g/dL Hct 31.1 L 28.8 L (36.0-46.0) % Plt Count 445 H 361 D (140-440) Thou/mm3 BMP 01/17/25 01/17/25 00:14 05:06 Sodium 140 144 Potassium 3.4 5.0 D Chloride 109 H 113 H Carbon Dioxide 21.2 23.1 BUN 11 9 Creatinine 0.9 0.7 Glucose 154 H 108 H Calcium 8.5 8.1 L Cardiac Enzymes 01/17/25 01/17/25 01/17/25 Range/Units 00:14 05:06 12:47 Troponin I 0.080 H* 0.084 H* 0.096 H* (0.0-0.045) ng/mL 01/17/25 01/17/25 Range/Units 16:41 18:09 Troponin I 0.107 H* 0.106 H* (0.0-0.045) ng/mL Liver Function 01/17/25 01/17/25 Range/Units 00:14 05:06 Total Bilirubin 0.2 L 0.2 L (0.3-1.2) mg/dL Direct Bilirubin < 0.1 (0.0-0.3) mg/dL ALT 44 59 H (10-49) U/L Alkaline Phosphatase 97 83 (46-116) U/L Albumin 4.3 3.6 D (3.5-5.0) gm/dL Urine 01/17/25 Range/Units 00:23 Urine Color Colorless A (Lt Yel-Yel) Urine Clarity Clear (Clear/Hazy) Urine pH 6.5 (5.0-7.0) Ur Specific [place] 1.005 (1.001-1.035) Urine Protein Negative (Neg - Trace) Urine Glucose (UA) Negative (Negative) Exam Vital Signs Temp Pulse Resp BP Pulse Ox O2 Del Method 97.2 F 61 18 150/95 H 99 Room Air 01/17/25 17:00 01/17/25 17:00 01/17/25 17:00 01/17/25 17:00 01/17/25 17:00 01/17/25 16:00 Narrative GENERAL: A&Ox3 . Awake, Not in acute distress NEURO: no focal neurological deficits HEENT: Atraumatic, Normocephalic. mucous membranes moist. Eyes open, symmetrical, & clear HEART: Normal Heart Sounds LUNGS: Clear to auscultation with no wheezing or crackles. ABDOMEN: soft, non-distended, non-tender, bowel sounds heard, no guarding or rebound tenderness SKIN: No Rash or ecchymoses EXTREMITIES: No edema, tenderness, able to move all 4 extremities, pedal pulses palpated Discharge Plan Plan Patient Disposition: HOME (Self Care) Patient condition on transfer: Stable Care Plan Goals: Please follow up with PCP and cardiology in 1-2 weeks of discharge. Prescriptions/Referrals Prescriptions/Med Rec: Continued amoxicillin 500 mg capsule 1,000 mg PO BID clarithromycin 500 mg tablet 500 mg PO BID omeprazole 20 mg capsule,delayed release(DR/EC) 20 mg PO BID ferrous sulfate [John-Time] 325 mg (65 mg iron) tablet 325 mg PO .3 TIMES A WEEK vit D3-folic [id number]-B12 2,000-800-0.32 unit-mcg-mg tablet 1 tab PO .QD Referrals: John De León MD [Primary Care Provider] - Patient/Caregiver Discharge Instructions Education Materials: Supraventricular Tachycardia Print Language: Emirati Stand Alone Forms: [employer] Award Info., Patient Portal Info Letter, Work/Release Restrictions Discharge Order Discharge Orders: Discharge (Routine); Ordered 01/17/25 Ordered By: William Elizabeth Quality Discharge Quality Measures VTE prophylaxis
--- NOTE | 2025-01-17 19:26 | PC.NURSE ---
1922 Patient discharged from [facility] pt refused wheelchair walked out with and son. IV was removed and tele monitor removed
--- NOTE | 2025-01-18 01:44 | ESCONSULT_ITS ---
RE: KLAUS DENT : 1980 DATE OF CONSULTATION: 01/17/2025 CONSULTING PHYSICIANS: Dr. Elizabeth. REASON FOR CONSULTATION: Evaluation of SVT and mild troponin elevation. HISTORY OF PRESENT ILLNESS: The patient is a 44-year-old female with no major cardiovascular risk factors, doing fairly well until last night, 01/16/2025. She came to the hospital with an episode of supraventricular tachycardia. She was having some palpitations, rapid heart rate. He did not have any chest pain. The patient was found to be having rapid heart rate with SVT episode. The patient had a similar episode 3 weeks ago. Apparently, she was waiting for referral for workup. The patient was found to have a supraventricular tachycardia rate of 200 beats per minute, received adenosine 6 mg x1, then 12 mg and termination of SVT, conversion to sinus rhythm. The patient apparently has had a lot of stress lately as well. She is back in normal sinus rhythm since yesterday. Because of slight troponin elevation of 0.07, she was admitted to the hospital for observation. She apparently has a lot of anxiety and other issues and stress. Cardiac echo was performed, completely normal results. Now echocardiogram which showed normal left ventricular wall motion, normal ejection fraction. No wall motion abnormalities seen. Clinically, this evening, she is feeling a lot better. She wanted to go home. She does not complain of any chest pain or shortness of breath. She remains in sinus rhythm. She has a history of iron deficiency anemia, which is chronic as well. ALLERGIES: NONE. MEDICATIONS: She takes some antibiotics at home, omeprazole for H. pylori infection, ferrous sulfate 325 mg three times a week. PAST MEDICAL HISTORY: History of iron deficiency anemia, H. pylori infection. REVIEW OF SYSTEMS: CARDIOVASCULAR: No chest pain or shortness of breath. GASTROINTESTINAL: No nausea or vomiting. H. pylori infection, iron deficiency. GENITOURINARY: No frequency or dysuria. CENTRAL NERVOUS SYSTEM: No neurologic symptoms. No syncope. PHYSICAL EXAMINATION: GENERAL: Well-nourished, pleasant lady, alert, awake, in no acute distress. VITAL SIGNS: Blood pressure 140/80 mmHg, pulse rate at 60, respirations 16, and temperature normal. HEENT: Head is atraumatic and normocephalic. Eyes normal. ENT normal. NECK: Supple. No JV. Carotid pulses felt with no bruit. CHEST: Symmetrical. LUNGS: Decreased breath sounds. No rales or rhonchi. HEART: S1, S1 regular. No gallops or murmurs. ABDOMEN: Thin and soft. EXTREMITIES: No edema. GENITOURINARY AND RECTAL: Not performed. SENIOR MAINFRAME DEVELOPER: Normal. DIAGNOSTIC DATA: Electrocardiogram showed evidence of sinus rhythm, nonspecific changes, within normal limits. Cardiac exam showed there is mild elevation of 0.07 of no clinical significance. IMPRESSION/ASSESSMENT: Recurrent episodes of supraventricular tachycardia, AVNRT. This episode required adenosine to convert the patient to sinus rhythm. RECOMMENDATIONS: I recommended to avoid caffeine containing beverages. The patient can be discharged home to outpatient evaluation. If she has recurrent episodes of supraventricular tachycardia that require adenosine, more frequent and long episodes, she may be a candidate for ablation for atrioventricular tristian reentry tachycardia. Should be referred to pocket grinder operator as an outpatient. Recommended the patient to see primary care physician, have been referred to pocket grinder operator for possible ablation. I reviewed the cardiac echo completely normal. EKG is normal hence, no further cardiac workup is necessary. Mild troponin elevation is not unusual in any patient with tachycardia rate of 180 and above. It has no clinical significance, possibly demand ischemia due to severe tachycardia. It can even happen in younger patients as such a slight elevation is not unusual. Since the clinical picture does not suggest acute coronary syndrome or coronary artery disease, I would not pursue any further workup at this time, but the patient may require electrophysiology referral as an outpatient. DT: 00:26:39 TT: 01:42:00 Ref: [id number] - TID: [id number]
== END 2025-01-17 19:23 | disposition home or self-care (01) ==
LOC: SERX 01-17 01:49 → SERHOLD 01-17 01:58 → S2NX 01-17 08:48 → SERHOLD 01-18 07:15 → S2NX 01-18 07:15
PROVIDERS: Student in an Organized Health Care Education/Training Program; Admitting Provider Student in an Organized Health Care Education/Training Program; Emergency Provider Emergency Medicine; PCP Family Medicine; Visit Provider Student in an Organized Health Care Education/Training Program
DX: I47.10 Supraventricular tachycardia, unspecified (principal); F41.9 Anxiety disorder, unspecified; F17.210 Nicotine dependence, cigarettes, uncomplicated; D50.9 Iron deficiency anemia, unspecified; Z01.810 Encounter for preprocedural cardiovascular examination; B96.81 Helicobacter pylori [H. pylori] as the cause of diseases classified elsewhere; R07.9 Chest pain, unspecified; R11.0 Nausea; R79.89 Other specified abnormal findings of blood chemistry
CPT/HCPCS: 36415; 71045; 80053; 80307; 80320; 81001; 82248; 83735; 83880; 84100; 84439; 84443; 84484; 84703; 85025; 85379; 85610; 85730; 87400; 87811; 93005; 93306; 94762; 96361; 96365; 96366; 96375; 96376; 99285; G0378; J0153; J2405; J3475; J7030; A9270; G0480

== ENCOUNTER 2025-01-20 13:25 | Outpatient (AMB) | payer MEDICAID, SELFPAY ==
[2025-01-20 13:45] VITALS: BP 131/86; PULSE 89; RESP 17; TEMP 36.6; O2SAT 98; BMI 33.8
--- NOTE | 2025-01-20 13:45 | PD.RESCLINIC ---
Vital Signs 01/20/25 13:45 Height 1.57 m Height Method Stated Weight 83.971 kg Weight Measurement Method Standing Scale BMI 33.8 BP 131/86 H Blood Pressure Source Automatic Cuff Blood Pressure Location Right Upper Arm Position Sitting Respiration 17 Pulse 89 Pulse Source Monitor Temp 97.9 F Temp Source Temporal Artery Scan Pulse Oximetry (%) 98 Oxygen Delivery Method Room Air Allergies/Meds Allergies & Medications Allergies No Known Allergies Allergy (Verified 01/20/25 13:56) Medication Reconciliation amoxicillin 500 mg capsule 1,000 mg PO BID 01/17/25 [History Confirmed 01/20/25] clarithromycin 500 mg tablet 500 mg PO BID 01/17/25 [History Confirmed 01/20/25] ferrous sulfate 325 mg (65 mg iron) tablet (John-Time) 325 mg PO .3 TIMES A WEEK 01/17/25 [History Confirmed 01/20/25] omeprazole 20 mg capsule,delayed release 20 mg PO BID 01/17/25 [History Confirmed 01/20/25] vit D3-folic acid-vit B2-B6-B12 2,000 unit-800 mcg-0.32 mg tablet 1 tab PO .QD 01/17/25 [History Confirmed 01/20/25] nicotine 14 mg/24 hr daily transdermal patch 1 patch transdermal QDAY 4 weeks #28 ea 01/20/25 [Rx] nicotine 7 mg/24 hr daily transdermal patch 1 patch transdermal QDAY 4 weeks #28 ea 01/20/25 [Rx] MA Intake Visit Data Collection New Patient or Established: Established Patient (seen at [facility] within 3 years) Seen by Clinical Staff ONLY (RN/MA): No Pain Present Currently: No Pain scale:: 0 Pain Scale Used: Viramontes-Sampson/Numerical Magnetic Prospecting Supervisor Required: No PCP or OBGYN visit in last 3 months: Yes Date of Last PCP or OBGYN visit: 01/17/25 Hx Now: No Do You Feel Safe at Home: Yes Authorities Contacted: N/A Smoking Status Smoking Status: Light (< 1 pack/day) Cessation Counseling Provided: KLAUS was advised that quitting smoking is the single most important factor to protect the health of themselves and their family. Discussed the benefits of quitting smoking with patient. Encouraged patient to quit smoking and provided Cessation assistance materials and resources. Tobacco Use: Cigarette Years smoked: 10 Are you interested in quitting?: Yes Would you like additional Smoking Cessation Counseling?: Yes Immunization / Flu Flu Vaccine in the Last 12 Months: No Flu Vaccine Exclusion Criteria: No Exclusion Criteria Past Medical History Past Medical History NEUROLOGIC: Positive Neurological Disorders and Migraine; Negative Seizures CARDIAC: Positive Cardiac Disorders; Negative Congestive Heart Failure RESPIRATORY: Negative Chronic Obstructive Pulmonary Disease (COPD) or Asthma GASTROINTESTINAL: Positive Gastrointestinal Disorders (H. PYLORI), Hemorrhoids and Gastroesophageal Reflux Disease; Negative Hepatitis GENITOURINARY: Negative Genitourinary Disorders or Renal Disease REPRODUCTIVE: Positive Previous Pregnancies ENDOCRINE: Negative Endocrine Disorders, Diabetes Mellitus Type 1 or Diabetes Mellitus Type 2 HEMATOLOGIC: Positive Anemia (IRON DEFICIENCY); Negative Sickle Cell Disease PSYCHO/SOCIAL: Positive Anxiety OTHER HISTORY: Positive Hospitalization; Negative Falls, Blood Transfusions, Blood Transfusion Reaction, Anesthesia Reactions, MRSA, Chicken Pox, Measles, Mumps or Cancer Social History SMOKING STATUS: Smoking status: Light (< 1 pack/day) SECOND HAND EXPOSURE: second hand exposure: Yes ALCOHOL: Alcohol Intake: Current ALCOHOL FREQUENCY: Alcohol Intake Frequency: holidays/special occasions only HOUSING: Housing: House LIVES WITH: Lives With: Spouse Patient Portal Questionaires PHQ-9 PHQ-2 Over the last 2 weeks, how often have you been bothered by any of the following problems? 1. Little interest or pleasure in doing things: not at all 2. Feeling down, depressed, or hopeless: not at all Total score: 0 PHQ-9 3. Trouble falling or staying asleep, or sleeping too much: Not at all 4. Feeling tired or having little energy: Not at all 5. Poor appetite or overeating: Not at all 6. Feeling bad about yourself - or that you are a failure or have let yourself or your family down: Not at all 7. Trouble concentrating on things, such as reading the newspaper or watching television: Not at all 8. Moving or speaking so slowly that other people could have noticed? - Or the opposite - being so fidgety or restless that you have been moving around a lot more than usual: not at all 9. Thoughts that you would be better off or of hurting yourself in some way: Not at all Total score: 0 If you checked off any problems, how difficult have these problems made it for you to do your work, take care of things at home, or get along with other people?: not difficult at all Source: Developed by Drs. Ever Dumont, Rosario Tidwell, Boris Rich and colleagues, with an educational alyssa from [employer]. Depression screen completed yes Social History Living Situation History Housing: House Housing Other:: Pt lives with husand Tobacco History Smoking Status: Light (< 1 pack/day) Second Hand Smoke Exposure: Yes Alcohol History Alcohol Intake: Current Alcohol Intake Frequency: holidays/special occasions only Substance Use History Substance Use: MARIJUANA Domestic Abuse History Do You Feel Safe at Home: Yes Review of Systems Report any current symptoms Only answer those that you have currently: Past Medical History Past Medical History Have you ever been diagnosed with any of the following: Neurological Problems Seizures: No Migraine: Yes Cardiology Problems Congestive Heart Failure: No Respiratory Problems Chronic Obstructive Pulmonary Disease (COPD): No Asthma: No Stomache/Intestinal Problems Hepatitis: No Hemorrhoids: Yes Gastroesophageal Reflux Disease: Yes Genital/Urinary Problems Renal Disease: No Reproductive Problems Previous Pregnancies: Yes Endocrine Problems Diabetes Mellitus Type 1: No Diabetes Mellitus Type 2: No Blood Problems Anemia: Yes (IRON DEFICIENCY) Sickle Cell Disease: No Psychologic Problems Anxiety: Yes Other Problems Hospitalization: Yes Falls: No Blood Transfusions: No Blood Transfusion Reaction: No Anesthesia Reactions: No MRSA: No Chicken Pox: No Measles: No Mumps: No Cancer: No History of Present Illness HPI Narrative Ms. Boyce is a 44-year-old female active smoker with past medical history of iron deficiency anemia on iron supplementation. 01/20: Pt is in [facility] for a follow up after hospitalization. Pt was hospitalized on 01/17 found to have SVT with HR above 200. Pt was given adenosine in the ED which put her in sinus rhythm. Pt was dischharged on 01/18. Pt attributes her symtoms to stress and increased anxiety. However pt states from time to time she feels strong palpitations whcih causes her to have shortness of breat. Denies substernal chest pain however during these episodes pt has chest pressure. Pt was recommended to follow up with corporate treasurer outpatient, for a continous holter monitor. echo was done during hospitalization and was normal. will send Cardiology referral. Pt also desires to quit smoking cigarettes and during hospitalization she was given nicotine patch which worked great. Pt will need follow up in clinic in 1 month, she will have complete H. Pylori treatment which was started by her previous doctor on the 01/12. Pt will need repeat H. pylori testing after 3 months of completing treatment. Review of Systems Review of Systems Systems Reviewed: All systems reviewed, normal except as documented Objective/Exam Narrative Physical exam: GENERAL: female, cooperative, not in acute distress NEURO: no focal neurological deficits noted HEENT: Atraumatic, Normocephalic. mucous membranes moist. Eyes open, symmetrical, & clear HEART: Normal Heart Sounds LUNGS: Clear to auscultation with no wheezing or crackles. ABDOMEN: soft, non-distended, non-tender, bowel sounds heard, no guarding or rebound tenderness SKIN: No Rash or ecchymoses EXTREMITIES: No edema, tenderness, able to move all 4 extremities, pedal pulses palpated Assessment & Plan Diagnosis / Problem List (1) SVT (supraventricular tachycardia): Status: Acute Assessment & Plan: Pt was hospitalized on 01/17 for SVT. Pt continues to have palpations -In the hospital troponins were mildly elevated peaked at (0.107) -Echo was normal with EF 60 to 65%. -electroloytes were normal, TSH normal Plan: -Cardiology referral for holter monitor and further work up -Lipid panel ordered -Hormones (FSH, LSH, Estrogen, progest) ordered (2) Iron deficiency anemia: Status: Acute Plan: -continue iron supplement every other day Orders: Referrals Cardiology Office Procedures [facility] Level of Care Nursing/Assessment Patient Status: Established Patient Nursing Assessment/Reassessment: Medication Reconciliation, Update PMH in EMR and Vital Signs Coordination of Care: Complex Care and Chronic Disease 1-5, Consent,records obtained, informed consent, Education [facility] and Staff clarify orders Established Patient Charge Established Patient Point Assignment: 85 Established Patient Point Charge: Level 3 (80-115) TB Screening LTBI Screening: Has patient traveled, was born, or resided for at least 1 month, or frequent border crossing into a country with an elevated TB rate: No Immunosuppression, current or planned (HIV, organ transplant, treated with biologic agents, steroids, or other immunosuppression medication): No Close contact to someone with infectious TB disease during lifetime: No Homelessness or incarceration, current or past: No TB testing indicated at this time (at least 1 yes above): No Arrhythmia/Palpitations Patient data External records reviewed:: [facility] previous records Clinical information provided by:: patient Social determinants that could affect healthcare access:: none Patient has the following chronic illnesses:: Iron deficiency anemia How is presenting disease/condition affected by chronic disease/condition?: uneffected by Evaluation data The following diagnostics were reviewed and interpreted by me:: lab results and EKG tracing(s) Lab and/or radiology exams considered but not ordered:: none Interpretation Summary: EKG, sinus rhythm no ST or T wave changes noted Medications / Prescriptions Medications or Prescriptions considered but not ordered:: SSRI Medication administrations:: nicotine patch Consultations Consultation(s) initiated? (list below): No Diagnosis Most likely diagnosis given after review of the tests above:: n/a Admission Indicated Admission indicated?: not indicated Admission Request Was there a request for admission?: No Disposition Plan Disposition Plan: other (specify)
== END 2025-01-20 14:30 | disposition home or self-care (01) ==
LOC: HODAHC 13:25
PROVIDERS: Supervising Provider Internal Medicine
DX: I47.10 Supraventricular tachycardia, unspecified (principal); D50.9 Iron deficiency anemia, unspecified
CPT/HCPCS: 99213; G0463

== ENCOUNTER 2025-02-21 09:22 | Outpatient (AMB) | payer MEDICAID, SELFPAY ==
--- NOTE | 2025-02-28 10:07 | PD.RESCLINIC ---
Allergies/Meds Allergies & Medications Allergies No Known Allergies Allergy (Verified 02/28/25 10:07) Medication Reconciliation amoxicillin 500 mg capsule 1,000 mg PO BID 01/17/25 [History Confirmed 02/28/25] clarithromycin 500 mg tablet 500 mg PO BID 01/17/25 [History Confirmed 02/28/25] ferrous sulfate 325 mg (65 mg iron) tablet (John-Time) 325 mg PO .3 TIMES A WEEK 01/17/25 [History Confirmed 02/28/25] omeprazole 20 mg capsule,delayed release 20 mg PO BID 01/17/25 [History Confirmed 02/28/25] vit D3-folic acid-vit B2-B6-B12 2,000 unit-800 mcg-0.32 mg tablet 1 tab PO .QD 01/17/25 [History Confirmed 02/28/25] MA Intake Visit Data Collection New Patient or Established: Established Patient (seen at [facility] within 3 years) Seen by Clinical Staff ONLY (RN/CIARA): No Pain Present Currently: No Pain scale:: 0 Pain Scale Used: Viramontes-Sampson/[employer] Insurance Claim Examiner Required: No PCP or OBGYN visit in last 3 months: No Hx Now: No Do You Feel Safe at Home: Yes Authorities Contacted: N/A Smoking Status Smoking Status: Smoker, status unknown Immunization / Flu Flu Vaccine in the Last 12 Months: No Flu Vaccine Exclusion Criteria: No Exclusion Criteria Past Medical History Past Medical History NEUROLOGIC: Positive Neurological Disorders and Migraine; Negative Seizures CARDIAC: Positive Cardiac Disorders; Negative Congestive Heart Failure RESPIRATORY: Negative Chronic Obstructive Pulmonary Disease (COPD) or Asthma GASTROINTESTINAL: Positive Gastrointestinal Disorders (H. PYLORI), Hemorrhoids and Gastroesophageal Reflux Disease; Negative Hepatitis GENITOURINARY: Negative Genitourinary Disorders or Renal Disease REPRODUCTIVE: Positive Previous Pregnancies ENDOCRINE: Negative Endocrine Disorders, Diabetes Mellitus Type 1 or Diabetes Mellitus Type 2 HEMATOLOGIC: Positive Anemia (IRON DEFICIENCY); Negative Sickle Cell Disease PSYCHO/SOCIAL: Positive Anxiety OTHER HISTORY: Positive Hospitalization; Negative Falls, Blood Transfusions, Blood Transfusion Reaction, Anesthesia Reactions, MRSA, Chicken Pox, Measles, Mumps or Cancer Social History SMOKING STATUS: Smoking status: Smoker, status unknown SECOND HAND EXPOSURE: second hand exposure: Yes ALCOHOL: Alcohol Intake: Current ALCOHOL FREQUENCY: Alcohol Intake Frequency: holidays/special occasions only HOUSING: Housing: House LIVES WITH: Lives With: Spouse Patient Portal Questionaires PHQ-9 PHQ-2 Over the last 2 weeks, how often have you been bothered by any of the following problems? 1. Little interest or pleasure in doing things: not at all PHQ-9 8. Moving or speaking so slowly that other people could have noticed? - Or the opposite - being so fidgety or restless that you have been moving around a lot more than usual: not at all Source: Developed by Drs. Ever Dumont, Rosario Tidwell, Boris Rich and colleagues, with an educational alyssa from [employer]. Social History Living Situation History Housing: House Housing Other:: Pt lives with lilia Tobacco History Smoking Status: Smoker, status unknown Second Hand Smoke Exposure: Yes Alcohol History Alcohol Intake: Current Alcohol Intake Frequency: holidays/special occasions only Substance Use History Substance Use: MARIJUANA Domestic Abuse History Do You Feel Safe at Home: Yes Review of Systems Report any current symptoms Only answer those that you have currently: Past Medical History Past Medical History Have you ever been diagnosed with any of the following: Neurological Problems Seizures: No Migraine: Yes Cardiology Problems Congestive Heart Failure: No Respiratory Problems Chronic Obstructive Pulmonary Disease (COPD): No Asthma: No Stomache/Intestinal Problems Hepatitis: No Hemorrhoids: Yes Gastroesophageal Reflux Disease: Yes Genital/Urinary Problems Renal Disease: No Reproductive Problems Previous Pregnancies: Yes Endocrine Problems Diabetes Mellitus Type 1: No Diabetes Mellitus Type 2: No Blood Problems Anemia: Yes (IRON DEFICIENCY) Sickle Cell Disease: No Psychologic Problems Anxiety: Yes Other Problems Hospitalization: Yes Falls: No Blood Transfusions: No Blood Transfusion Reaction: No Anesthesia Reactions: No MRSA: No Chicken Pox: No Measles: No Mumps: No Cancer: No History of Present Illness HPI Narrative Ms. Boyce is a 44-year-old female active smoker with past medical history of iron deficiency anemia on iron supplementation. 01/20: Pt is in [facility] for a follow up after hospitalization. Pt was hospitalized on 01/17 found to have SVT with HR above 200. Pt was given adenosine in the ED which put her in sinus rhythm. Pt was dischharged on 01/18. Pt attributes her symtoms to stress and increased anxiety. However pt states from time to time she feels strong palpitations which causes her to have shortness of breath. Denies substernal chest pain however during these episodes pt has chest pressure. Pt was recommended to follow up with mechanics handyman outpatient, for a continuos holter monitor. echo was done during hospitalization and was normal. will send Cardiology referral. Pt also desires to quit smoking cigarettes and during hospitalization she was given nicotine patch which worked great. Pt will need follow up in clinic in 1 month, she will have complete H. Pylori treatment which was started by her previous doctor on the 01/12. Pt will need repeat H. pylori testing after 3 months of completing treatment. 02/21: Pt is here for follow up appointment. States she feels great, denies SOB or palpitations. Pt's anxiety has also improved. Pt hsa not been seen by mechanics handyman yet. Pt will be seeing Dr. Ferreira in [place] shortly. Pt has completed her treatment for H.pylori and will repeat test in April. Pt also have a mammogram appointment coming up at the [facility] in couple weeks. Currently no new complaints. labs are reviewed, and are all within normal limits including estrogen and other hormonal panel, lipid panel is also normal. Pt has stoped smoking with the help of nicotine patches. Review of Systems Review of Systems Systems Reviewed: All systems reviewed, normal except as documented Objective/Exam Narrative Physical exam: GENERAL: female, cooperative, well groomed, not in acute distress NEURO: no focal neurological deficits noted HEENT: Atraumatic, Normocephalic. mucous membranes moist. Eyes open, symmetrical, & clear HEART: Normal Heart Sounds LUNGS: Clear to auscultation with no wheezing or crackles. ABDOMEN: soft, non-distended, non-tender, bowel sounds heard, no guarding or rebound tenderness SKIN: No Rash or ecchymoses EXTREMITIES: No edema, tenderness, able to move all 4 extremities, pedal pulses palpated Assessment & Plan Diagnosis / Problem List (1) SVT (supraventricular tachycardia): Status: Acute Assessment & Plan: Pt was hospitalized on 01/17 for SVT. denies any symptoms of palpitations and shortness of breath -Echo during hospitalization was normal with EF 60 to 65%. -electroloytes were normal, TSH normal, hormones are all with in normal limits, lipid panel normal Plan: -Cardiology referral for holter monitor and further work up -pending mechanics handyman appointment (2) Iron deficiency anemia: Status: Acute Plan: -continue iron supplement every other day (3) Tobacco use disorder: Status: Acute Assessment & Plan: -has not smoked since nicotine patches Plan: continue nicotine patches taper Office Procedures [facility] Level of Care Nursing/Assessment Patient Status: Established Patient Nursing Assessment/Reassessment: Medication Reconciliation and Update PMH in EMR Coordination of Care: Complex Care and Chronic Disease 1-5, Consent,records obtained, informed consent, Education Simp Pt/Fam, 1 Ins Authorization, Ref for ancillary service and Staff clarify orders Established Patient Charge Established Patient Point Assignment: 105 Established Patient Point Charge: EP Level 3 (80-115)
== END 2025-02-21 10:28 | disposition home or self-care (01) ==
LOC: HODAHC 09:22
PROVIDERS: Supervising Provider Internal Medicine
DX: F41.9 Anxiety disorder, unspecified (principal); D50.9 Iron deficiency anemia, unspecified; I47.10 Supraventricular tachycardia, unspecified; Z87.891 Personal history of nicotine dependence
CPT/HCPCS: 99213; G0463

== ENCOUNTER 2025-07-20 20:43 | Emergency (ER) | payer MEDICAID, SELFPAY ==
[2025-07-20] VITALS (15 sets, daily range): BP systolic 113–137; BP diastolic 65–99; PULSE 81–217; RESP 11–23; TEMP 36.9; O2SAT 100; BMI 33.8
--- NOTE | 2025-07-20 20:46 | EKG_ITS ---
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: 1980 Requested By: ED Temporary Provider Order Number: [id number] Reading MD: ED Temporary Provider Measurements Intervals [place] Rate: 104 P: 56 OR: 141 QRS: 20 QRSD: 86 T: 18 QT: 333 QTc: 439 Interpretive Statements SINUS TACHYCARDIA POSSIBLE LEFT ATRIAL ENLARGEMENT [-0.1mV P-WAVE IN V1/V2] POSSIBLE RIGHT VENTRICULAR CONDUCTION DELAY [RSR (QR) IN V1/V2] SEPTAL MYOCARDIAL INFARCTION , PROBABLY OLD [40+ ms Q WAVE IN V1/V2] Compared to ECG 01/17/2025 16:32:05 Sinus rhythm no longer present Sinus arrhythmia no longer present Myocardial infarct finding still present /store/S0/[id number]
--- NOTE | 2025-07-20 20:49 | PD.EDARRY ---
ED Arrhythmia Palp. RME/HPI General Chief Complaint: Chest Pain Stated Complaint: CHEST PAIN Time Seen by Provider: 07/20/25 20:58 Arrival date/time: 07/20/25 20:43 RME / HPI RME / HPI narrative: See [facility] for Dr. Whitney's HPI Documentation. Related Data Home Medications ?Medication ?Instructions ?Recorded ?Confirmed amoxicillin 500 mg capsule 1,000 mg PO BID 01/17/25 02/28/25 clarithromycin 500 mg tablet 500 mg PO BID 01/17/25 02/28/25 ferrous sulfate 325 mg (65 mg 325 mg PO .3 TIMES A WEEK 01/17/25 02/28/25 iron) tablet (John-Time) omeprazole 20 mg capsule,delayed 20 mg PO BID 01/17/25 02/28/25 release vit D3-folic acid-vit B2-B6-B12 1 tab PO .QD 01/17/25 02/28/25 2,000 unit-800 mcg-0.32 mg tablet Previous Rx's ?Medication ?Instructions ?Recorded metoprolol succinate 25 mg capsule 25 mg PO BID #180 ea 07/21/25 sprinkle, ext. release 24 hr Allergies Allergy/AdvReac Type Severity Reaction Status Date / Time No Known Allergies Allergy Verified 02/28/25 10:07 Review of Systems Review of Systems Systems Reviewed: All systems reviewed, normal except as documented Past Medical History Past Medical History NEUROLOGIC: Positive Neurological Disorders and Migraine CARDIAC: Positive Cardiac Disorders GASTROINTESTINAL: Positive Gastrointestinal Disorders (H. PYLORI), Hemorrhoids and Gastroesophageal Reflux Disease REPRODUCTIVE: Positive Previous Pregnancies MUSCULOSKELETAL: Positive Musculoskeletal Disorders HEMATOLOGIC: Positive Anemia (IRON DEFICIENCY) PSYCHO/SOCIAL: Positive Anxiety OTHER HISTORY: Positive Hospitalization Social History SECOND HAND EXPOSURE: Yes SUBSTANCE USE: marijuana ED Exam Narrative Physical exam: See [facility] for Dr. Whitney's Physical Exam Documentation. Course Quality Measures none Orders Category Date Time Status EKG (ED ONLY) *Do not use* NOW Care 07/20/25 20:46 Active Saline [Insert IV] NOW Care 07/20/25 20:48 Active EKG (ED Only) Stat Exams 07/20/25 20:46 Ordered Adenosine 6mg Inj [Adenocard Inj] Med 07/20/25 20:49 Once 6 mg IVP X1 ONE Arrhythmia/Palpitations MDM Narrative MDM Narrative:: This section includes all my notes and documentations, including HPI, PE, and ED course. 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 No other complaints. ROS: All negative except as documented in HPI. Physical Exam: General: Alert and oriented. No acute distress when remaining still. Eyes: Conjunctivae and lids clear. ENT: No nasal congestion. Neck: Supple. Heart: Severe tachycardia. Lungs: No respiratory distress. Good air movement. No rhonchi, wheezing, rales. Abdomen: Soft and nontender. Normal bowel sounds. No distension. No rebound or guarding. Back: No CVA tenderness. Skin: Warm and dry. Neuro: Alert and oriented X 3. I reviewed all diagnostic test results: My interpretation of the EKG: SVT (215 bpm) with no ST-T changes. My interpretation of the chest x-ray is: NAD. Blood tests and urine tests unremarkable, including stable troponin X 2. At this point, diagnoses include: SVT Treatment here included: Adenocard 6 mg (SVT -> NSR) Oral metoprolol 25 mg (after conversion) Significant improvement noted. I discussed the case with our hospitalist.? About the presentation and exam and diagnostics and treatments here.? And need of further care in the hospital.? Recommend outpatient treatment. Based on my best medical judgment, made decision no further evaluation or treatment indicated at this time. Patient understands and agrees to the discharge instructions customized and printed, see below. Discharge instructions from Dr. Whitney: 1. You were successfully treated for SVT, see attached handout. 2. Fortunately, there is no life-threatening condition. Such as heart attack or pulmonary embolism (blood clots in your lungs) or pneumothorax (collapsed lung). 3. Take Metoprolol as prescribed to help prevent future episodes. You will live longer with lower BP and slower heart rate. 4. See a private doctor on 07/22/2025 for recheck. To make sure there is no serious underlying heart condition, ask to help you get more tests for your heart that cannot be done here in the ER. Such as Holter Monitor (cardiac monitoring at home from a day to even a month), heart stress test (on treadmill or with medication), echocardiogram (imaging of your heart structures), heart catherization (checking for blockages in your heart arteries), and a referral to see a Paralegals. 5. Seek immediate medical care with worsening or with any concerns. Mark Anthony Whitney MD Patient data External records reviewed:: [facility] previous records (Reviewed prior ED records from 01/16/25. Patient was seen for Elevated troponin.) Clinical information provided by:: patient Social determinants that could affect healthcare access:: substance use (Marijuana) Patient has the following chronic illnesses:: Migraine, Hemorrhoids, Gastroesophageal Reflux Disease, RODDY, Anxiety How is presenting disease/condition affected by chronic disease/condition?: exacerbated by Evaluation data The following diagnostics were reviewed and interpreted by me:: EKG tracing(s) (My interpretation of the EKG: SVT (215 bpm) with no ST-T changes. Mark Anthony Whitney MD) Lab and/or radiology exams considered but not ordered:: None Interpretation Summary: I reviewed all diagnostic test results: My interpretation of the EKG: SVT (215 bpm) with no ST-T changes. My interpretation of the chest x-ray is: NAD. Blood tests and urine tests unremarkable, including stable troponin X 2. Medications / Prescriptions Medications or Prescriptions considered but not ordered:: None Medication administrations:: Medication Administration History Adenosine (Adenosine Inj 3 Mg/Ml Vial) 6 mg IVP X1 ONE Stop: 07/20/25 20:50 Consultations Consultation(s) initiated? (list below): Yes Consultation #1 (Physician, Specialty, Details): I discussed the case with our hospitalist.? About the presentation and exam and diagnostics and treatments here.? And need of further care in the hospital.? Recommend outpatient treatment. Time: 22:05 Diagnosis Differential diagnosis arrhythmia/palpitations: palpitations, anxiety, sinus tachycardia, artial fibrillation, artial flutter, ventricular premature beats, supraventricular tachycardia and ventricular tachycardia Most likely diagnosis given after review of the tests above:: SVT Admission Indicated Admission indicated?: not indicated Explain why admission is indicated or not indicated:: With significant improvement and no condition needing emergent intervention, there was no indication for admission. Admission Request Was there a request for admission?: Yes Admission Attestation Admission request attestation: Discussed case with [] from Hospitalist service regarding admission. Discussed patients ED course, exam findings, labs, and radiology results. The Hospitalist [agrees,declines] to accept the patient for admission. Disposition Plan Disposition Plan: Discharge Discharge Attestation Discharge Attestation: The patient and all family members were given an opportunity to ask questions and understood the discharge instructions. Discharge instructions specifically effects, indications for sooner follow up or return to the emergency department, and the expected course of current diagnosis. Patient condition: Stable Discharge Plan Plan Patient Disposition: HOME (Self Care) Prescriptions/Referrals Prescriptions/Med Rec: New metoprolol succinate 25 mg capsule,sprinkle,ER 24hr 25 mg PO BID Qty: 180 0RF No Action amoxicillin 500 mg capsule 1,000 mg PO BID clarithromycin 500 mg tablet 500 mg PO BID omeprazole 20 mg capsule,delayed release(DR/EC) 20 mg PO BID ferrous sulfate [John-Time] 325 mg (65 mg iron) tablet 325 mg PO .3 TIMES A WEEK vit D3-folic vdva-R8-C0-B12 2,000-800-0.32 unit-mcg-mg tablet 1 tab PO .QD Referrals: No Primary/Family,Physician [Primary Care Provider] - In 1 week Problem List Clinical Impression: SVT (supraventricular tachycardia) Patient/Caregiver Discharge Instructions Discharge Activity: activity as tolerated Education Materials: ED Tachycardia: PAT Additional Instructions: Discharge instructions from Dr. Whitney: 1. You were successfully treated for SVT, see attached handout. 2. Fortunately, there is no life-threatening condition. Such as heart attack or pulmonary embolism (blood clots in your lungs) or pneumothorax (collapsed lung). 3. Take Metoprolol as prescribed to help prevent future episodes. You will live longer with lower BP and slower heart rate. 4. See a private doctor on 07/22/2025 for recheck. To make sure there is no serious underlying heart condition, ask to help you get more tests for your heart that cannot be done here in the ER. Such as Holter Monitor (cardiac monitoring at home from a day to even a month), heart stress test (on treadmill or with medication), echocardiogram (imaging of your heart structures), heart catherization (checking for blockages in your heart arteries), and a referral to see a Paralegals. 5. Seek immediate medical care with worsening or with any concerns. Print Language: Italian Stand Alone Forms: Jayla Award Info., Patient Portal Info Letter
--- NOTE | 2025-07-20 20:50 | XR_ITS ---
EXAMINATION: AP chest single view TECHNIQUE: AP portable upright chest single view Date and time: July 20, 2025, 2111 hours, comparison January 17, 2025 INDICATIONS: Sudden onset chest pain cardiac palpitations today. FINDINGS: Normal heart size Lungs are clear. Osseous rectors are intact IMPRESSION: No active disease
[2025-07-20 21:10] LABS: Base Excess, Venous -1 (-3-3); O2 Saturation, Venous 77 % (96-97); PCO2, Venous 39 mmHg (36-56); PO2, Venous 41 mmHg (15-58); pH, Venous 7.39 (7.33-7.66)
[2025-07-20] MEDS: ADENOSINE INJ 3 MG/ML VIAL 6 MG IVP (21:12)
[2025-07-20 21:15] LABS: Basophils # (Auto) 0.0 Thou/mm3 (0.0-0.2); Basophils % (Auto) 0 % (0-2.5); Eosinophils # (Auto) 0.0 Thou/mm3 (0.0-0.5); Eosinophils % (Auto) 1 % (0-10); Hematocrit 29.8 % (36.0-46.0); Hemoglobin 9.0 g/dL (12.0-16.0); Immature Granulocytes Auto 0.01 Thou/mm3 (0.00-0.00); Lymphocytes # (Auto) 3.0 Thou/mm3 (1.0-4.8); Lymphocytes % (Auto) 49 % (10-50); Mean Corpuscular HGB Conc 30.2 g/dl (31.0-37.0); Mean Corpuscular Hemoglobin 22.6 pg (25.0-35.0); Mean Corpuscular Volume 75 fL (80-100); Monocytes # (Auto) 0.7 Thou/mm3 (0.0-0.8); Monocytes % (Auto) 11 % (0-12); Neutrophils # (Auto) 2.3 Thou/mm3 (1.8-7.7); Neutrophils % (Auto) 39 % (37-80); Nucleated Red Blood Cell # 0.00 Thou/mm3 (0.00-0.00); Nucleated Red Blood Cell % 0 /100 WBC (0); Platelet Count 420 Thou/mm3 (140-440); RDW Standard Deviation 42.6 fL (36.4-46.3); Red Blood Count 3.99 Miln/mm3 (4.00-5.20); White Blood Count 6.0 Thou/mm3 (3.6-11.0)
[2025-07-20] MEDS: METOPROLOL TARTRATE 25 MG TABLET PO (21:22)
[2025-07-20 21:30] LABS: D-Dimer < 250 ng/mL (<600); INR 0.9 (0.9-1.3); Partial Thromboplastin Time 22.7 Seconds (22.0-36.0); Prothrombin Time 9.8 Seconds (9.0-12.2)
[2025-07-20 21:32] LABS: HCG,Qualitative Serum Negative
[2025-07-20 21:35] LABS: Glucose Estimated Average 120 mg/dL (80-131); Hemoglobin A1C 5.8 % Hgb (4.8-6.0)
[2025-07-20 21:39] LABS: B-Type Natriuretic Peptide 42 pg/mL (0-100)
[2025-07-20 21:40] LABS: Alanine Aminotransferase 22 U/L (10-49); Albumin, Serum 4.7 gm/dL (3.5-5.0); Albumin/Globulin Ratio 1.3 (1.2-2.2); Alcohol, Blood Medical < 3.0 mg/dL (0-10.0); Alkaline Phosphatase 86 U/L (46-116); Anion Gap 11 (7-16); Aspartate Amino Transferase 30 U/L (0-34); BUN/Creatinine Ratio 16 Ratio (12-20); Bilirubin,Direct < 0.1 mg/dL (0.0-0.3); Bilirubin,Total 0.3 mg/dL (0.3-1.2); Blood Urea Nitrogen 13 mg/dL (9-23); Calcium 9.2 mg/dL (8.3-10.6); Calcium (Corrected) 9.2 mg/dL (8.5-10.1); Carbon Dioxide 21.6 mMol/L (20.0-31.0); Chloride 108 mMol/L (98-107); Creatine Kinase 64 U/L (34-171); Creatinine (Component) 0.8 mg/dL (0.6-1.3); Estimated Creatinine Clearance 95.6 mL/min (>60); Globulin 3.6 gm/dL (2.3-3.5); Glucose 132 mg/dL (74-106); Magnesium 1.7 mg/dL (1.6-2.6); Osmolality,Calculated 283 (275-295); Potassium 3.9 mMol/L (3.4-5.1); Sodium 141 mMol/L (136-145); Thyroid Stimulating Hormone 3.13 uIU/mL (0.55-4.78); Total Protein 8.3 gm/dL (5.7-8.2); eGFR > 60 See Note
[2025-07-20 21:46] LABS: Troponin I 0.064 ng/mL (0.0-0.045)
[2025-07-20 21:57] LABS: Collection Type, Urine Clean Catch
[2025-07-20 22:04] LABS: Bilirubin,Urine Negative (Negative); Blood,Urine Negative (Negative); Clarity,Urine Clear (Clear/Hazy); Color,Urine Colorless (Lt Yel-Yel); Culture Indicated,Urine Not Indicated; Glucose, Urine Negative (Negative); Ketones,Urine Negative (Negative); Leukocyte Esterase,Urine Negative (Negative); Nitrite,Urine Negative (Negative); PH,Urine 6.5 (5.0-7.0); Protein,Urine Negative (Neg - Trace); RBC,Urine 1 /hpf (0-3); Specific Gravity,Urine 1.007 (1.001-1.035); Squamous Epithelial Cell,Urine 4 /hpf (0-5); Urobilinogen,Urine Negative mg/dL (0.0-1.0); WBC,Urine 1 /hpf (0-5)
[2025-07-20 22:10] LABS: Amphetamine/Methamp Scrn,U Negative (Negative); Barbiturate Screen,Urine Negative (Negative); Benzodiazepines Screen,Urine Negative (Negative); Benzoylecgonine Screen, Ur Negative (Negative); Fentanyl Screen,Urine Negative (Negative); Opiate Screen,Urine Negative (Negative); THC Screen,Urine Negative (Negative)
[2025-07-20 23:47] LABS: Troponin I 0.078 ng/mL (0.0-0.045)
[2025-07-21] VITALS: BP 127/77; PULSE 87; RESP 15; O2SAT 100
[2025-07-21 00:09] VITALS: BP 127/77; PULSE 87; RESP 16; TEMP 36.7; O2SAT 100
== END 2025-07-21 00:28 | disposition home or self-care (01) ==
PROVIDERS: Emergency Provider Emergency Medicine
DX: R07.9 Chest pain, unspecified (principal); I47.10 Supraventricular tachycardia, unspecified
CPT/HCPCS: 36415; 71045; 80053; 80307; 80320; 81001; 82248; 82550; 82803; 83036; 83735; 83880; 84443; 84484; 84703; 85025; 85379; 85610; 85730; 93005; 96374; 99284; J0153; A9270; G0480

== ENCOUNTER 2025-08-09 21:37 | Emergency (ER) | payer MEDICAID, SELFPAY ==
[2025-08-09 21:37] VITALS: BMI 34.3
--- NOTE | 2025-08-09 21:40 | EKG_ITS ---
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
[2025-08-09 21:51] VITALS: BP 132/69; PULSE 75; RESP 20; TEMP 36.8; O2SAT 98
--- NOTE | 2025-08-09 22:01 | XR_ITS ---
EXAMINATION: PA chest single view TECHNIQUE: 1. Upright PA chest single view Date and time: August 09, 2025, 10:33 p.m. INDICATIONS: Chest pain cardiac palpitations today. FINDINGS: Normal heart size Lungs are clear. Intact osseous structures IMPRESSION: No active disease
--- NOTE | 2025-08-09 22:01 | PD.EDRME ---
Rapid Medical Screening Exam RME Arrival date/time: 08/09/25 21:37 This is a case of 44-year-old female with history of SVT and hypertension and GERD came in in the emergency room due to chest pain and palpitation patient states that she will have procedure antibiotics for his SVT by licensed home inspector no other symptoms no shortness of Chief Complaint: Chest Pain Time Seen by Provider: 08/09/25 21:58 Vital signs: Vital Signs Temperature 98.3 F 08/09/25 21:51 Pulse Rate 75 08/09/25 21:51 Respiratory Rate 20 08/09/25 21:51 Blood Pressure 132/69 H 08/09/25 21:51 Pulse Oximetry (%) 98 08/09/25 21:51 Oxygen Delivery Method Room Air 08/09/25 21:51 Exam: Normal rate regular rhythm no murmur clear breath sound Clinical Impression: Chest pain
[2025-08-09 22:43] LABS: Basophils # (Auto) 0.0 Thou/mm3 (0.0-0.2); Basophils % (Auto) 0 % (0-2.5); Eosinophils # (Auto) 0.1 Thou/mm3 (0.0-0.5); Eosinophils % (Auto) 1 % (0-10); Hematocrit 33.6 % (36.0-46.0); Hemoglobin 10.3 g/dL (12.0-16.0); Immature Granulocytes Auto 0.04 Thou/mm3 (0.00-0.00); Lymphocytes # (Auto) 1.8 Thou/mm3 (1.0-4.8); Lymphocytes % (Auto) 30 % (10-50); Mean Corpuscular HGB Conc 30.7 g/dl (31.0-37.0); Mean Corpuscular Hemoglobin 24.4 pg (25.0-35.0); Mean Corpuscular Volume 80 fL (80-100); Monocytes # (Auto) 0.7 Thou/mm3 (0.0-0.8); Monocytes % (Auto) 11 % (0-12); Neutrophils # (Auto) 3.4 Thou/mm3 (1.8-7.7); Neutrophils % (Auto) 57 % (37-80); Nucleated Red Blood Cell # 0.00 Thou/mm3 (0.00-0.00); Nucleated Red Blood Cell % 0 /100 WBC (0); Platelet Count 323 Thou/mm3 (140-440); RDW Standard Deviation 59.3 fL (36.4-46.3); Red Blood Count 4.22 Miln/mm3 (4.00-5.20); White Blood Count 6.0 Thou/mm3 (3.6-11.0)
[2025-08-09 22:54] LABS: B-Type Natriuretic Peptide < 20 pg/mL (0-100)
[2025-08-09 22:57] LABS: Collection Type, Urine Voided
[2025-08-09 23:07] LABS: Bilirubin,Urine Negative (Negative); Blood,Urine Negative (Negative); Clarity,Urine Clear (Clear/Hazy); Color,Urine Yellow (Lt Yel-Yel); Glucose, Urine Negative (Negative); Ketones,Urine Negative (Negative); Leukocyte Esterase,Urine Negative (Negative); Nitrite,Urine Negative (Negative); PH,Urine 6.5 (5.0-7.0); Protein,Urine Trace (Neg - Trace); RBC,Urine 7 /hpf (0-3); Specific Gravity,Urine 1.030 (1.001-1.035); Squamous Epithelial Cell,Urine 1 /hpf (0-5); Urobilinogen,Urine 3.0 mg/dL (0.0-1.0); WBC,Urine 1 /hpf (0-5)
[2025-08-09 23:08] LABS: HCG Qualitative,Urine Negative
[2025-08-09 23:16] LABS: Alanine Aminotransferase 83 U/L (10-49); Albumin, Serum 4.2 gm/dL (3.5-5.0); Albumin/Globulin Ratio 1.2 (1.2-2.2); Alkaline Phosphatase 101 U/L (46-116); Anion Gap 8 (7-16); Aspartate Amino Transferase 127 U/L (0-34); BUN/Creatinine Ratio 13 Ratio (12-20); Bilirubin,Total 0.4 mg/dL (0.3-1.2); Blood Urea Nitrogen 10 mg/dL (9-23); Calcium 9.3 mg/dL (8.3-10.6); Calcium (Corrected) 9.3 mg/dL (8.5-10.1); Carbon Dioxide 25.8 mMol/L (20.0-31.0); Chloride 107 mMol/L (98-107); Creatinine (Component) 0.8 mg/dL (0.6-1.3); Estimated Creatinine Clearance 96.4 mL/min (>60); Globulin 3.5 gm/dL (2.3-3.5); Glucose 83 mg/dL (74-106); Osmolality,Calculated 279 (275-295); Potassium 3.8 mMol/L (3.4-5.1); Sodium 141 mMol/L (136-145); Thyroid Stimulating Hormone 2.90 uIU/mL (0.55-4.78); Total Protein 7.7 gm/dL (5.7-8.2); eGFR > 60 See Note
[2025-08-09 23:19] LABS: Troponin I 0.067 ng/mL (0.0-0.045)
[2025-08-09 23:31] VITALS: BP 121/61; PULSE 83; RESP 15; TEMP 36.9; O2SAT 100
--- NOTE | 2025-08-09 23:49 | PD.EDCHEST ---
ED Chest Pain RME/HPI General Chief Complaint: Chest Pain Stated Complaint: CHEST PAIN HX OF SVT Time Seen by Provider: 08/09/25 21:58 Arrival date/time: 08/09/25 21:37 RME / HPI RME / HPI narrative: 08/09/25 21:37 This is a case of 44-year-old female with history of SVT and hypertension and GERD came in in the emergency room due to chest pain and palpitation patient states that she will have procedure antibiotics for his SVT by patient transition specialist no other symptoms no shortness of Dr. Rojas?s Main ED Evaluation: 44yo female Related Data Home Medications ?Medication ?Instructions ?Recorded ?Confirmed amoxicillin 500 mg capsule 1,000 mg PO BID 01/17/25 02/28/25 clarithromycin 500 mg tablet 500 mg PO BID 01/17/25 02/28/25 ferrous sulfate 325 mg (65 mg 325 mg PO .3 TIMES A WEEK 01/17/25 02/28/25 iron) tablet (John-Time) omeprazole 20 mg capsule,delayed 20 mg PO BID 01/17/25 02/28/25 release vit D3-folic acid-vit B2-B6-B12 1 tab PO .QD 01/17/25 02/28/25 2,000 unit-800 mcg-0.32 mg tablet Previous Rx's ?Medication ?Instructions ?Recorded metoprolol succinate 25 mg capsule 25 mg PO BID #180 ea 07/21/25 sprinkle, ext. release 24 hr Allergies Allergy/AdvReac Type Severity Reaction Status Date / Time No Known Allergies Allergy Verified 02/28/25 10:07 Review of Systems Review of Systems Systems Reviewed: All systems reviewed, normal except as documented Course Course Course Narrative: CXR is ordered for determining the etiology of chest pain. Quality Measures none Orders Category Date Time Status EKG (ED ONLY) *Do not use* NOW Care 08/09/25 21:40 Completed EKG (ED Only) Stat Exams 08/09/25 21:40 Draft XR chest 1V Stat Exams 08/09/25 22:01 Completed BNP [B-Type Natriuretic Peptide] Stat Lab 08/09/25 22:16 Completed CBC Stat Lab 08/09/25 22:16 Completed CMP [Comprehensive Metabolic Panel] Stat Lab 08/09/25 22:16 Completed HCG Qualitative,Urine Stat Lab 08/09/25 22:36 Completed TSH [Thyroid Stimulating Hormone] Stat Lab 08/09/25 22:16 Completed Troponin I Stat Lab 08/09/25 22:16 Completed Urinalysis Stat Lab 08/09/25 22:36 Completed Vital Signs Vital signs: Vital Signs Temperature 98.3 F 08/09/25 21:51 Pulse Rate 75 08/09/25 21:51 Respiratory Rate 20 08/09/25 21:51 Blood Pressure 132/69 H 08/09/25 21:51 Pulse Oximetry (%) 98 08/09/25 21:51 Oxygen Delivery Method Room Air 08/09/25 21:51 Chest Pain MDM Narrative MDM Narrative:: Scribe Attestation: 08/09/25 Kia Liu am scribing for and in the presence of Dr. Rojas. Patient data External records reviewed:: [facility] previous records Clinical information provided by:: patient Social determinants that could affect healthcare access:: none Discharge Plan Prescriptions/Referrals Prescriptions/Med Rec: No Action amoxicillin 500 mg capsule 1,000 mg PO BID clarithromycin 500 mg tablet 500 mg PO BID omeprazole 20 mg capsule,delayed release(DR/EC) 20 mg PO BID ferrous sulfate [John-Time] 325 mg (65 mg iron) tablet 325 mg PO .3 TIMES A WEEK vit D3-folic owgl-U1-M2-B12 2,000-800-0.32 unit-mcg-mg tablet 1 tab PO .QD metoprolol succinate 25 mg capsule,sprinkle,ER 24hr 25 mg PO BID Qty: 180 0RF Referrals: No Primary/Family,Physician [Primary Care Provider] - In 1 week Patient/Caregiver Discharge Instructions Print Language: Niuean
--- NOTE | 2025-08-10 00:01 | EDNOTE_ITS ---
ED Chest Pain RME/HPI General Chief Complaint: Chest Pain Stated Complaint: CHEST PAIN HX OF SVT Time Seen by Provider: 08/09/25 21:58 Arrival date/time: 08/09/25 21:37 RME / HPI RME / HPI narrative: 44-year-old female past medical history of SVT, HTN, GERD, iron deficient anemia, presented to ED with chest pain. Her symptoms started around 9 PM this evening while she was at rest. She reports feeling sudden abdominal pressure/tightness and pain rated 6/10 in intensity, nonradiating, associated with nausea. Symptoms lasted until 11:30 PM while she was in the ED. Denied shortness of breath, diaphoresis or fainting. She was diagnosed with SVT during hospitalization earlier this year and was evaluated by cardiology with normal echocardiogram findings. She had an ED visit earlier this month for similar symptoms and was given ADENOSINE after which SVT was resolved. She was discharged on METOPROLOL succinate 25 mg daily and states she hasn't been taking it regularly, although she took 1 dose earlier today following her chest pain. She reports current episodes of chest palpitation and is currently following Dr. Ferreira in [place]. She has been referred for electrophysiology and has an appointment in September this month for ablation. She has chronic GERD and on last hospital admission she was discharged on OMEPRAZOLE but she is currently not taking. She is also chronically anemic and was discharged on iron supplements which she is taking. Hemoglobin 10.3 during this admission, improved compared to last ED visit. On presentation vitals are normal with normal heart rate. EKG showed sinus rhythm with nonspecific T wave abnormalities at a heart rate of [address] depressions in some leads which were present on previous EKG. Troponin is slightly elevated at 0.067 then downtrended to 0.62 on repeat (both are lower t bassett previous admission). There is also mild elevation in AST 127 and ALT of 83. Currently she is asymptomatic, reports resolution of her chest pain. I do not think she has significant myocardial ischemia requiring admission, given that her symptoms her resolved and troponin are downtrending. Discussed discharging home with continuation of METOPROLOL and close follow up with cardiology. Recommended return to ED if symptoms persist, worsen or new symptoms develop. Patient agrees to plan. Exam: Normal rate regular rhythm no murmur clear breath sound. Mild epigastric tenderness to palpation. Impression: Chest pain Related Data Home Medications ?Medication ?Instructions ?Recorded ?Confirmed ferrous sulfate 325 mg (65 mg 325 mg PO .3 TIMES A WEE K 01/17/25 02/28/25 iron) tablet (John-Time) omeprazole 20 mg capsule,delayed 20 mg PO BID 01/17/25 02/28/25 release vit D3-folic acid-vit B2-B6-B12 1 tab PO .QD 01/17/25 02/28/25 2,000 unit-800 mcg-0.32 mg tablet Previous Rx's ?Medication ?Instructions ?Recorded metoprolol succinate 25 mg 25 mg PO QDAY #30 tabs 07/13 09/04 tablet,extended release 24 hr Allergies Allergy/AdvReac Type Severity Reaction Status Date / Time No Known Allergies Allergy Verified 02/28/25 10:07 ED Exam Narrative Physical exam: GENERAL * Normal appearing female, NAD. HEENT * NCAT.?PEDRO LUIS. Oral mucosa is moist. Patent Nares NECK * Supple, nontender, no JVD. CHEST * RRR, no m/g/r * CTAB, no w/r/r, symmetrical expansion. ABDOMEN * Soft, flat, nontender. No guarding/rebound tenderness/masses. * Bowel sounds presents EXTREMITIES * No edema/cyanosis.? SKIN * Warm and dry, no jaundice/rashes. NEUROMUSCULAR * No focal neurologic deficits. PSYCHIATRY * Normal mood and affect, cooperative, no SI or HI or hallucinations. Course Course Course Narrative: CXR is ordered for determining the etiology of chest pain. Quality Measures none Orders Category Date Time Status EKG (ED ONLY) *Do not use* NOW Care 08/09/25 21:40 Completed EKG (ED Only) Stat Exams 08/09/25 21:40 Draft XR chest 1V Stat Exams 08/09/25 22:01 Completed BNP [B-Type Natriuretic Peptide] Stat Lab 08/09/25 22:16 Completed CBC Stat Lab 08/09/25 22:16 Completed CMP [Comprehensive Metabolic Panel] Stat Lab 08/09/25 22:16 Completed HCG Qualitative,Urine Stat Lab 08/09/25 22:36 Completed Magnesium Routine Lab 08/10/25 01:07 Completed TSH [Thyroid Stimulating Hormone] Stat Lab 08/09/25 22:16 Completed Troponin I Routine Lab 08/10/25 01:07 Completed Troponin I Stat Lab 08/09/25 22:16 Completed Urinalysis Stat Lab 08/09/25 22:36 Completed Magnesium Oxide [Mag-Ox 400] Med 08/10/25 02:03 Discontinued 400 mg PO X1 ONE Vital Signs Vital signs: Vital Signs Temperature 98.3 F 08/09/25 21:51 Pulse Rate 75 08/09/25 21:51 Respiratory Rate 20 08/09/25 21:51 Blood Pressure 132/69 H 08/09/25 21:51 Pulse Oximetry (%) 98 08/09/25 21:51 Oxygen Delivery Method Room Air 08/09/25 21:51 Chest Pain Patient data External records reviewed:: [facility] previous records Clinical information provided by:: patient Social determinants that could affect healthcare access:: alcohol use Patient has the following chronic illnesses:: SVT, HTN How is presenting disease/condition affected by chronic disease/condition?: uneffected by Evaluation data The following diagnostics were reviewed and interpreted by me:: lab results and EKG tracing(s) Lab and/or radiology exams considered but not ordered:: NA Interpretation Summary: Acute chest pain, less likely ischemic Medications / Prescriptions Medications or Prescriptions considered but not ordered:: NA Medication administrations:: Medication Administration History Discontinued Medications Magnesium Oxide (Magnesium Oxide 400 Mg Tablet) 400 mg PO X1 ONE Stop: 08/10/25 02:04 NA Consultations Consultation(s) initiated? (list below): No Diagnosis Most likely diagnosis given after review of the tests above:: Acute chest pain, less likely ischemic (resolved) Admission Indicated Admission indicated?: not indicated Admission Request Was there a request for admission?: No Disposition Plan Disposition Plan: Discharge Discharge Attestation Discharge Attestation: The patient and all family members were given an opportunity to ask questions and understood the discharge instructions. Discharge instructions specifically effects, indications for sooner follow up or return to the emergency department, and the expected course of current diagnosis. Patient condition: Stable Discharge Plan Plan Patient Disposition: HOME (Self Care) Patient condition on transfer: Stable Health Concerns: * Follow-up with PCP within 1-2 weeks of discharge. * Recommended close follow-up with cardiology within 1-2 weeks of discharge. * Continue taking METOPROLOL 25 mg daily. * Continue taking medications as prescribed below. * Return to Emergency Room if symptoms persist, worsen, or new symptoms develop. Prescriptions/Referrals Prescriptions/Med Rec: New metoprolol succinate 25 mg tablet extended release 24 hr 25 mg PO QDAY Qty: 30 0RF Rx Instructions: Take 1 tablet daily Continued omeprazole 20 mg capsule,delayed release(DR/EC) 20 mg PO BID ferrous sulfate [John-Time] 325 mg (65 mg iron) tablet 325 mg PO .3 TIMES A WEEK vit D3-folic uyaa-L2-O8-B12 2,000-800-0.32 unit-mcg-mg tablet 1 tab PO .QD Discontinued amoxicillin 500 mg capsule 1,000 mg PO BID clarithromycin 500 mg tablet 500 mg PO BID metoprolol succinate 25 mg capsule,sprinkle,ER 24hr 25 mg PO BID Qty: 180 0RF Referrals: No Primary/Family,Physician [Primary Care Provider] - In 1 week Problem List Clinical Impression: Chest pain Patient/Caregiver Discharge Instructions Print Language: Khmer Stand Alone Forms: [facility]la Award Info., Patient Portal Info Letter
--- NOTE | 2025-08-10 00:08 | PC.NURSE ---
pt denies any chest pain at this time. states pain went away while here after burping. pt aware waiting for repeat lab draw.
[2025-08-10 01:45] LABS: Magnesium 2.0 mg/dL (1.6-2.6)
[2025-08-10 01:46] LABS: Troponin I 0.062 ng/mL (0.0-0.045)
[2025-08-10] MEDS: MAGNESIUM OXIDE 400 MG TABLET PO (02:57)
[2025-08-10 02:59] VITALS: BP 129/87; PULSE 64; RESP 16; O2SAT 98
== END 2025-08-10 03:07 | disposition home or self-care (01) ==
PROVIDERS: Nurse Practitioner Family; Emergency Provider Emergency Medicine
DX: R07.9 Chest pain, unspecified (principal); R94.31 Abnormal electrocardiogram [ECG] [EKG]; I10 Essential (primary) hypertension
CPT/HCPCS: 36415; 71045; 80053; 81001; 81025; 83735; 83880; 84443; 84484; 85025; 93005; 99283; A9270